=== PATIENT | male | born 1960 | race Caucasian/White ===

== ENCOUNTER → 2017-10-30 | Outpatient (CLI) | payer MEDICARE ==
[2017-10-30 12:10] LABS: ABSOLUTE BASOPHILS # (AUTO) 0.1 10^3/uL (0.0-0.2); ABSOLUTE EOSINOPHILS # (AUTO) 0.2 10^3/uL (0.0-0.6); ABSOLUTE LYMPHOCYTES (AUTO) 2.2 10^3/uL (0.5-4.7); ABSOLUTE MONOCYTES (AUTO) 0.5 10^3/uL (0.1-1.4); ABSOLUTE NEUT (AUTO) 5.6 10^3/uL (1.7-8.2); EOSINOPHILS % (AUTO) 2.5 % (0-6); HEMATOCRIT 42.4 % (37.9-51.0); HEMOGLOBIN 14.5 g/dL (13.5-17.0); LYMPHOCYTES % (AUTO) 25.4 % (13-45); MEAN CORPUSCULAR HEMOGLOBIN 30.1 pg (27.0-33.4); MEAN CORPUSCULAR HGB CONC 34.3 g/dL (32.0-36.0); MEAN CORPUSCULAR VOLUME 88 fl (80-97); MONOCYTES % (AUTO) 5.5 % (3-13); PLATELET COUNT 251 10^3/uL (150-450); RED BLOOD COUNT 4.82 10^6/uL (4.35-5.55); RED CELL DISTRIBUTION WIDTH 14.2 % (11.5-14.0); SEGMENTED NEUTROPHILS % (AUTO) 65.6 % (42-78); TOTAL CELLS COUNTED % (AUTO) 100 %; WHITE BLOOD COUNT 8.6 10^3/uL (4.0-10.5)
[2017-10-30 12:51] LABS: ERYTHROCYTE SEDIMENTATION RATE 51 mm/hr (0-20)
[2017-10-30 13:03] LABS: ALANINE AMINOTRANSFERASE 43 U/L (21-72); ALBUMIN 4.4 g/dL (3.5-5.0); ALKALINE PHOSPHATASE 110 U/L (38-126); ANION GAP 10 (5-19); ASPARTATE AMINO TRANSFERASE 28 U/L (17-59); BILIRUBIN,DIRECT 0.2 mg/dL (0.0-0.4); BILIRUBIN,TOTAL 0.3 mg/dL (0.2-1.3); BLOOD UREA NITROGEN 16 mg/dL (7-20); C-REACTIVE PROTEIN 19.7 mg/L (<10.0); CALCIUM 10.1 mg/dL (8.4-10.2); CARBON DIOXIDE 28 mmol/L (22-30); CHLORIDE 102 mmol/L (98-107); GLUCOSE 114 mg/dL (75-110); POTASSIUM 4.6 mmol/L (3.6-5.0); SODIUM 140.3 mmol/L (137-145); TOTAL PROTEIN 7.9 g/dL (6.3-8.2)
--- NOTE | 2017-10-30 13:50 | RADIOLOGY REPORT (SQ) ---
EXAM DESCRIPTION: FOOT BILATERAL 3 VIEWS COMPLETED DATE/TIME: 10/30/2017 11:35 am REASON FOR STUDY: NON-PRS CHRONIC ULCER OTH PRT RT/LT FOOT W FAT LAYER EXPOSED E11.621 TYPE 2 DIAB ETES MELLITUS WITH FOOT ULCER L97.512 NON-PRS CHRONIC ULCER OTH PRT RIGHT FOOT W FAT LAYER L97.522 NON-PRS CHRONIC ULCER OTH PRT LEFT FOOT W FAT LAYER COMPARISON: None. NUMBER OF VIEWS: Three views. TECHNIQUE: AP, lateral and oblique radiographic images acquired of the right and left foot. LIMITATIONS: Patient has compression stockings on which are faintly radiopaque FINDINGS: Overall bone density is normal. On the right side, there is diffuse soft tissue swelling throughout the 2nd and 3rd toes, without agg ressive bony demineralization or periostitis worrisome for osteomyelitis. On the left side, diffuse soft tissue swelling of the 1st 2nd and 3rd toes is present. Radiopaque oi ntment between the 1st and 2nd toes in a soft tissue ulcer. No aggressive bony demineralization or p eriosteal new bone worrisome for active osteomyelitis. No soft tissue gas. There is a pencil in cup deformity at the left 1st metatarsophalangeal joint which could be seen in p soriatic arthritis or erosive osteoarthritis. Gout could not entirely be excluded. On the left side, a soft tissue ulcer over the 5th toe with radiopaque ointment is seen. No aggressi ve bony demineralization or periosteal new bone worrisome for active osteomyelitis. No right or left acute foot fracture. IMPRESSION: With swelling over the toes bilaterally, without aggressive bony demineralization or per iosteal new bone to suggest active osteomyelitis Advanced arthritis at the left 1st metatarsophalangeal joint worrisome for psoriatic arthritis, erosi ve osteoarthritis, or gout TECHNICAL DOCUMENTATION: JOB ID: [id number] [employer]- All Rights Reserved Reading location - IP/workstation name: [email or web address]
== END ==
LOC: OD 10:43
PROVIDERS: ATTEND Preventive Medicine Undersea and Hyperbaric Medicine
DX: E11.621 Type 2 diabetes mellitus with foot ulcer (principal); L97.512 Non-pressure chronic ulcer of other part of right foot with fat layer exposed; L97.522 Non-pressure chronic ulcer of other part of left foot with fat layer exposed
CPT/HCPCS: 36415; 80053; 83036; 85025; 85652; 86140

== ENCOUNTER → 2017-11-10 | Outpatient (CLI) | payer MEDICARE ==
--- NOTE | 2017-11-10 16:25 | XCELERA REPORT ---
[address] [address] Lower Extremity Arterial Evaluation Name: DAPHNIE THURSTON Age: 57 yrs Gender: Male : 1960 Patient Status: Outpatient Patient Location: Study Date: 11/10/2017 09:01 AM Procedure: A color flow and duplex scan of the lower extremity arteries was performed bilaterally with velocity and waveform anaylsis. Reason For Study: [facility] Ordering Physician: DEE MAIER Performed By: Elissa Alfonso Measurements and Calculations Right Left GRINDER OPERATOR PSV 170.3 155.7 cm/sec Prox PFA PSV -85.6 74.1 cm/sec Prox SFA PSV 120.5 145.0 cm/sec Mid SFA PSV -95.0 -97.3 cm/sec Dist SFA PSV -115.9 -88.4 cm/sec Prox Pop A PSV 143.0 89.0 cm/sec Dist CAMRON PSV 97.3 61.2 cm/sec Dist LOADING INSPECTOR PSV 94.3 169.7 cm/sec Jose F Pedis PSV -91.3 78.3 cm/sec Right Side Arterial Evaluation Normal velocity and triphasic waveforms noted from the Common Femoral artery to the infrageniculate vessels. 0 % stenosis . Ankle Brachial index not done due to bandaging, foot ulcers. Left Side Arterial Evaluation Normal velocity and triphasic waveforms noted from the Common Femoral artery to the infrageniculate vessels. 0 % stenosis . Ankle Brachial index not done due to bandaging, foot ulcers. Interpretation Summary No hemodynamically significant lesions in the bilateral lower extremities, on duplex imaging, at rest. : DEE MAIER > [employer]
== END ==
LOC: SP 08:58
PROVIDERS: ATTEND Preventive Medicine Undersea and Hyperbaric Medicine
DX: L97.512 Non-pressure chronic ulcer of other part of right foot with fat layer exposed (principal)
CPT/HCPCS: 93925

== ENCOUNTER → 2018-01-27 | Outpatient (CLI) | payer MEDICARE ==
--- NOTE | 2018-01-27 13:36 | RADIOLOGY REPORT (SQ) ---
EXAM DESCRIPTION: FOOT RIGHT COMPLETE COMPLETED DATE/TIME: 01/27/2018 10:15 am REASON FOR STUDY: NON PRESSURE ULCER OF RT FOOT WITH FAT LAYER EXPOSED L97.512 NON-PRS CHRONIC ULCE R OTH PRT RIGHT FOOT W FAT LAYER COMPARISON: None. NUMBER OF VIEWS: Three views. TECHNIQUE: AP, lateral and oblique without weight bearing radiographic images acquired of the right foot. LIMITATIONS: None. FINDINGS: MINERALIZATION: Normal. BONES: No acute fracture or dislocation. No worrisome bone lesions. No plain radiographic changes of osteomyelitis. JOINTS: No erosions. No chris-articular osteopenia. No chondrocalcinosis. SOFT TISSUES: No swelling. No calcifications. OTHER: No other significant finding. IMPRESSION: No plain radiographic changes osteomyelitis. TECHNICAL DOCUMENTATION: JOB ID: [id number] [employer]- All Rights Reserved Reading location - IP/workstation name: [email or web address]
== END ==
LOC: OD 09:54
PROVIDERS: ATTEND Nurse Practitioner
DX: L97.512 Non-pressure chronic ulcer of other part of right foot with fat layer exposed (principal)

== ENCOUNTER → 2018-03-10 | Outpatient (CLI) | payer MEDICARE ==
[2018-03-10 11:10] LABS: ABSOLUTE BASOPHILS # (AUTO) 0.1 10^3/uL (0.0-0.2); ABSOLUTE EOSINOPHILS # (AUTO) 0.3 10^3/uL (0.0-0.6); ABSOLUTE LYMPHOCYTES (AUTO) 2.3 10^3/uL (0.5-4.7); ABSOLUTE MONOCYTES (AUTO) 0.9 10^3/uL (0.1-1.4); ABSOLUTE NEUT (AUTO) 7.8 10^3/uL (1.7-8.2); BASOPHILS % (AUTO) 1.2 % (0-2); EOSINOPHILS % (AUTO) 2.8 % (0-6); HEMATOCRIT 32.2 % (37.9-51.0); HEMOGLOBIN 10.8 g/dL (13.5-17.0); LYMPHOCYTES % (AUTO) 20.2 % (13-45); MEAN CORPUSCULAR HEMOGLOBIN 29.5 pg (27.0-33.4); MEAN CORPUSCULAR HGB CONC 33.4 g/dL (32.0-36.0); MEAN CORPUSCULAR VOLUME 88 fl (80-97); PLATELET COUNT 310 10^3/uL (150-450); RED BLOOD COUNT 3.64 10^6/uL (4.35-5.55); SEGMENTED NEUTROPHILS % (AUTO) 67.8 % (42-78); TOTAL CELLS COUNTED % (AUTO) 100 %; WHITE BLOOD COUNT 11.4 10^3/uL (4.0-10.5)
[2018-03-10 11:42] LABS: ALANINE AMINOTRANSFERASE 99 U/L (21-72); ALBUMIN 3.3 g/dL (3.5-5.0); ALKALINE PHOSPHATASE 150 U/L (38-126); ANION GAP 13 (5-19); ASPARTATE AMINO TRANSFERASE 85 U/L (17-59); BILIRUBIN,DIRECT 0.3 mg/dL (0.0-0.4); BILIRUBIN,TOTAL 0.4 mg/dL (0.2-1.3); BLOOD UREA NITROGEN 13 mg/dL (7-20); CARBON DIOXIDE 24 mmol/L (22-30); CHLORIDE 103 mmol/L (98-107); GLUCOSE 111 mg/dL (75-110); POTASSIUM 4.1 mmol/L (3.6-5.0); SODIUM 140.2 mmol/L (137-145); TOTAL PROTEIN 7.2 g/dL (6.3-8.2)
[2018-03-10 11:54] LABS: ERYTHROCYTE SEDIMENTATION RATE 107 mm/hr (0-20)
[2018-03-10 11:57] LABS: C-REACTIVE PROTEIN 179.9 mg/L (<10.0)
== END ==
LOC: WC 09:59
PROVIDERS: ATTEND Nurse Practitioner
DX: E11.621 Type 2 diabetes mellitus with foot ulcer (principal); L97.512 Non-pressure chronic ulcer of other part of right foot with fat layer exposed
CPT/HCPCS: 36415; 80053; 83036; 85025; 85652; 86140

== ENCOUNTER → 2018-03-31 | Outpatient (CLI) | payer MEDICARE ==
--- NOTE | 2018-03-31 10:31 | RADIOLOGY REPORT (SQ) ---
EXAM DESCRIPTION: FOOT BILATERAL 3 VIEWS COMPLETED DATE/TIME: 03/31/2018 9:59 am REASON FOR STUDY: NON PRESSURE ULCER MELINA FEET WITH FAT LAYER EXPOSED L97.512 NON-PRS CHRONIC ULCER OTH PRT RIGHT FOOT W FAT LAYER L97.522 NON-PRS CHRONIC ULCER OTH PRT LEFT FOOT W FAT LAYER COMPARISON: Right foot three views 01/27/2018 Bilateral feet three views 10/30/2017 NUMBER OF VIEWS: Three views. TECHNIQUE: AP, lateral and oblique radiographic images acquired of the right and left foot. LIMITATIONS: None. FINDINGS: RIGHT FOOT MINERALIZATION: Normal. BONES: No acute fracture or dislocation. No worrisome bone lesions. Although there has been some re modeling at the distal tuft, 2nd toe, the appearance today is similar compared to prior exams suggest ing against active osteomyelitis. JOINTS: No effusions. SOFT TISSUES: Diffuse forefoot and toe soft tissue swelling. No foreign body. OTHER: No other significant finding. LEFT FOOT MINERALIZATION: Normal. BONES: No acute fracture or dislocation. Chronic appearing pencil in cup deformity left 1st metatars ophalangeal joint, unchanged. JOINTS: No effusions. SOFT TISSUES: Diffuse forefoot and toe soft tissue swelling. No foreign body. OTHER: No other significant finding. IMPRESSION: Soft tissue swelling of both feet and toes. No new areas of demineralization or periost itis worrisome for active osteomyelitis TECHNICAL DOCUMENTATION: JOB ID: [id number] [employer]- All Rights Reserved Reading location - IP/workstation name: [email or web address]
== END ==
LOC: OD 09:38
PROVIDERS: ATTEND Nurse Practitioner
DX: L97.512 Non-pressure chronic ulcer of other part of right foot with fat layer exposed (principal); L97.522 Non-pressure chronic ulcer of other part of left foot with fat layer exposed

== ENCOUNTER → 2018-06-02 | Outpatient (CLI) | payer MEDICARE ==
[2018-06-02 10:32] LABS: ABSOLUTE BASOPHILS # (AUTO) 0.1 10^3/uL (0.0-0.2); ABSOLUTE EOSINOPHILS # (AUTO) 0.2 10^3/uL (0.0-0.6); ABSOLUTE LYMPHOCYTES (AUTO) 2.6 10^3/uL (0.5-4.7); ABSOLUTE MONOCYTES (AUTO) 0.5 10^3/uL (0.1-1.4); ABSOLUTE NEUT (AUTO) 4.6 10^3/uL (1.7-8.2); BASOPHILS % (AUTO) 0.8 % (0-2); EOSINOPHILS % (AUTO) 2.9 % (0-6); HEMATOCRIT 35.3 % (37.9-51.0); HEMOGLOBIN 11.7 g/dL (13.5-17.0); LYMPHOCYTES % (AUTO) 32.6 % (13-45); MEAN CORPUSCULAR HEMOGLOBIN 28.8 pg (27.0-33.4); MEAN CORPUSCULAR VOLUME 87 fl (80-97); MONOCYTES % (AUTO) 6.1 % (3-13); PLATELET COUNT 197 10^3/uL (150-450); RED BLOOD COUNT 4.05 10^6/uL (4.35-5.55); RED CELL DISTRIBUTION WIDTH 17.4 % (11.5-14.0); SEGMENTED NEUTROPHILS % (AUTO) 57.6 % (42-78); TOTAL CELLS COUNTED % (AUTO) 100 %; WHITE BLOOD COUNT 7.9 10^3/uL (4.0-10.5)
[2018-06-02 11:06] LABS: ALANINE AMINOTRANSFERASE 26 U/L (21-72); ALKALINE PHOSPHATASE 100 U/L (38-126); ANION GAP 10 (5-19); ASPARTATE AMINO TRANSFERASE 19 U/L (17-59); BILIRUBIN,DIRECT 0.2 mg/dL (0.0-0.4); BILIRUBIN,TOTAL 0.5 mg/dL (0.2-1.3); BLOOD UREA NITROGEN 21 mg/dL (7-20); C-REACTIVE PROTEIN 24.2 mg/L (<10.0); CALCIUM 9.8 mg/dL (8.4-10.2); CARBON DIOXIDE 31 mmol/L (22-30); CHLORIDE 102 mmol/L (98-107); GLUCOSE 164 mg/dL (75-110); POTASSIUM 4.8 mmol/L (3.6-5.0); SODIUM 142.6 mmol/L (137-145); TOTAL PROTEIN 8.2 g/dL (6.3-8.2)
[2018-06-02 11:26] LABS: ERYTHROCYTE SEDIMENTATION RATE 63 mm/hr (0-20)
== END ==
LOC: WC 09:43
PROVIDERS: ATTEND Nurse Practitioner
DX: E11.621 Type 2 diabetes mellitus with foot ulcer (principal); L97.522 Non-pressure chronic ulcer of other part of left foot with fat layer exposed
CPT/HCPCS: 36415; 80053; 83036; 85025; 85652; 86140

== ENCOUNTER → 2018-09-22 | Outpatient (CLI) | payer MEDICARE ==
[2018-09-22 10:56] LABS: ABSOLUTE BASOPHILS # (AUTO) 0.1 10^3/uL (0.0-0.2); ABSOLUTE EOSINOPHILS # (AUTO) 0.2 10^3/uL (0.0-0.6); ABSOLUTE LYMPHOCYTES (AUTO) 2.1 10^3/uL (0.5-4.7); ABSOLUTE MONOCYTES (AUTO) 0.4 10^3/uL (0.1-1.4); ABSOLUTE NEUT (AUTO) 5.2 10^3/uL (1.7-8.2); BASOPHILS % (AUTO) 1.1 % (0-2); EOSINOPHILS % (AUTO) 2.3 % (0-6); HEMATOCRIT 44.3 % (37.9-51.0); HEMOGLOBIN 15.1 g/dL (13.5-17.0); LYMPHOCYTES % (AUTO) 25.9 % (13-45); MEAN CORPUSCULAR HEMOGLOBIN 30.4 pg (27.0-33.4); MEAN CORPUSCULAR VOLUME 89 fl (80-97); PLATELET COUNT 217 10^3/uL (150-450); RED BLOOD COUNT 4.96 10^6/uL (4.35-5.55); SEGMENTED NEUTROPHILS % (AUTO) 65.7 % (42-78); TOTAL CELLS COUNTED % (AUTO) 100 %
[2018-09-22 11:14] LABS: ALANINE AMINOTRANSFERASE 52 U/L (21-72); ALBUMIN 4.8 g/dL (3.5-5.0); ALKALINE PHOSPHATASE 122 U/L (38-126); ANION GAP 12 (5-19); ASPARTATE AMINO TRANSFERASE 36 U/L (17-59); BILIRUBIN,DIRECT 0.2 mg/dL (0.0-0.4); BILIRUBIN,TOTAL 0.6 mg/dL (0.2-1.3); BLOOD UREA NITROGEN 26 mg/dL (7-20); C-REACTIVE PROTEIN 19.1 mg/L (<10.0); CALCIUM 10.4 mg/dL (8.4-10.2); CARBON DIOXIDE 31 mmol/L (22-30); CHLORIDE 99 mmol/L (98-107); GLUCOSE 189 mg/dL (75-110); POTASSIUM 4.8 mmol/L (3.6-5.0); SODIUM 141.9 mmol/L (137-145); TOTAL PROTEIN 8.8 g/dL (6.3-8.2)
[2018-09-22 11:52] LABS: ERYTHROCYTE SEDIMENTATION RATE 52 mm/hr (0-20)
== END ==
LOC: WC 10:11
PROVIDERS: ATTEND Nurse Practitioner Family
DX: L97.512 Non-pressure chronic ulcer of other part of right foot with fat layer exposed (principal)
CPT/HCPCS: 36415; 80053; 85025; 85652; 86140

== ENCOUNTER → 2018-09-29 | Outpatient (CLI) | payer MEDICARE ==
[2018-09-29 11:07] LABS: ALANINE AMINOTRANSFERASE 42 U/L (21-72); ALBUMIN 4.4 g/dL (3.5-5.0); ALKALINE PHOSPHATASE 105 U/L (38-126); ANION GAP 11 (5-19); ASPARTATE AMINO TRANSFERASE 28 U/L (17-59); BILIRUBIN,DIRECT 0.2 mg/dL (0.0-0.4); BILIRUBIN,TOTAL 0.2 mg/dL (0.2-1.3); BLOOD UREA NITROGEN 16 mg/dL (7-20); CALCIUM 9.4 mg/dL (8.4-10.2); CARBON DIOXIDE 26 mmol/L (22-30); CHLORIDE 108 mmol/L (98-107); GLUCOSE 111 mg/dL (75-110); POTASSIUM 4.5 mmol/L (3.6-5.0); SODIUM 145.1 mmol/L (137-145); TOTAL PROTEIN 8.2 g/dL (6.3-8.2)
--- NOTE | 2018-09-29 13:28 | RADIOLOGY REPORT (SQ) ---
EXAM DESCRIPTION: FOOT BILATERAL 3 VIEWS COMPLETED DATE/TIME: 09/29/2018 10:39 am REASON FOR STUDY: NON-PRS CHRONIC ULCER OTH PRT RIGHT LEFT FOOT W FAT LAYER EXPOSED L97.512 NON-PRS CHRONIC ULCER OTH PRT RIGHT FOOT W FAT LAYER L97.522 NON-PRS CHRONIC ULCER OTH PRT LEFT FOOT W FAT LAYER COMPARISON: None. NUMBER OF VIEWS: Three views. TECHNIQUE: AP, lateral and oblique radiographic images acquired of the right and left foot. LIMITATIONS: None. FINDINGS: MINERALIZATION: Normal. BONES: There is bone destruction involving the base of the left 1st proximal phalanx. JOINTS: Extensive joint changes are present in the 1st metatarsal-phalangeal joint. SOFT TISSUES: No soft tissue swelling. No foreign body. OTHER: No other significant finding. IMPRESSION: Neuropathic joint changes involving the left 1st metatarsal-phalangeal joint. No eviden ce of osteomyelitis associated with the ulcers. TECHNICAL DOCUMENTATION: JOB ID: [id number] [employer]- All Rights Reserved Reading location - IP/workstation name: [email or web address]
== END ==
LOC: WC 09:38
PROVIDERS: ATTEND Nurse Practitioner Family
DX: L97.512 Non-pressure chronic ulcer of other part of right foot with fat layer exposed (principal); L97.522 Non-pressure chronic ulcer of other part of left foot with fat layer exposed
CPT/HCPCS: 36415; 80053

== ENCOUNTER → 2018-10-27 | Outpatient (CLI) | payer MEDICARE ==
--- NOTE | 2018-10-27 09:56 | RADIOLOGY REPORT (SQ) ---
EXAM DESCRIPTION: FOOT LEFT COMPLETE COMPLETED DATE/TIME: 10/27/2018 9:46 am REASON FOR STUDY: NON-PRS CHRONIC ULCER OTH PRT LEFT FOOT W FAT LAYER EXPOSED L97.522 NON-PRS CHRON IC ULCER OTH PRT LEFT FOOT W FAT LAYER L97.512 NON-PRS CHRONIC ULCER OTH PRT RIGHT FOOT W FAT LAYER COMPARISON: None. NUMBER OF VIEWS: Three views. TECHNIQUE: AP, lateral and oblique radiographic images acquired of the left foot. LIMITATIONS: None. FINDINGS: MINERALIZATION: Normal. BONES: There chronic degenerative changes involving the 1st metatarsal phalangeal joint. Changes may be related to prior infectious process. There is no acute evidence of osteomyelitis. JOINTS: No effusions. SOFT TISSUES: No soft tissue swelling. No foreign body. OTHER: No other significant finding. IMPRESSION: Chronic changes in the 1st metatarsal phalangeal joint as described. No conventional ra diographic evidence of acute osteomyelitis. TECHNICAL DOCUMENTATION: JOB ID: [id number] [employer]- All Rights Reserved Reading location - IP/workstation name: [email or web address]
--- NOTE | 2018-10-27 09:57 | RADIOLOGY REPORT (SQ) ---
EXAM DESCRIPTION: FOOT RIGHT COMPLETE COMPLETED DATE/TIME: 10/27/2018 9:46 am REASON FOR STUDY: NON-PRS CHRONIC ULCER OTH PRT RIGHT FOOT W FAT LAYER EXPOSED L97.522 NON-PRS MANAGER CABLE DANN ULCER OTH PRT LEFT FOOT W FAT LAYER L97.512 NON-PRS CHRONIC ULCER OTH PRT RIGHT FOOT W FAT LAYE R COMPARISON: None. NUMBER OF VIEWS: Three views. TECHNIQUE: AP, lateral and oblique radiographic images acquired of the right foot. LIMITATIONS: None. FINDINGS: MINERALIZATION: Normal. BONES: No acute fracture or dislocation. No worrisome bone lesions. JOINTS: No effusions. SOFT TISSUES: No soft tissue swelling. No foreign body. OTHER: No other significant finding. IMPRESSION: No acute findings. No conventional radiographic evidence of osteomyelitis. TECHNICAL DOCUMENTATION: JOB ID: [id number] [employer]- All Rights Reserved Reading location - IP/workstation name: [email or web address]
[2018-10-27 10:10] LABS: ABSOLUTE BASOPHILS # (AUTO) 0.1 10^3/uL (0.0-0.2); ABSOLUTE EOSINOPHILS # (AUTO) 0.2 10^3/uL (0.0-0.6); ABSOLUTE LYMPHOCYTES (AUTO) 1.7 10^3/uL (0.5-4.7); ABSOLUTE MONOCYTES (AUTO) 0.4 10^3/uL (0.1-1.4); ABSOLUTE NEUT (AUTO) 4.6 10^3/uL (1.7-8.2); BASOPHILS % (AUTO) 1.2 % (0-2); EOSINOPHILS % (AUTO) 2.8 % (0-6); HEMATOCRIT 43.2 % (37.9-51.0); HEMOGLOBIN 14.8 g/dL (13.5-17.0); LYMPHOCYTES % (AUTO) 23.9 % (13-45); MEAN CORPUSCULAR HEMOGLOBIN 30.7 pg (27.0-33.4); MEAN CORPUSCULAR HGB CONC 34.3 g/dL (32.0-36.0); MEAN CORPUSCULAR VOLUME 90 fl (80-97); MONOCYTES % (AUTO) 6.2 % (3-13); PLATELET COUNT 206 10^3/uL (150-450); RED BLOOD COUNT 4.83 10^6/uL (4.35-5.55); RED CELL DISTRIBUTION WIDTH 15.6 % (11.5-14.0); SEGMENTED NEUTROPHILS % (AUTO) 65.9 % (42-78); TOTAL CELLS COUNTED % (AUTO) 100 %
[2018-10-27 10:39] LABS: ALANINE AMINOTRANSFERASE 37 U/L (21-72); ALBUMIN 4.6 g/dL (3.5-5.0); ALKALINE PHOSPHATASE 115 U/L (38-126); ANION GAP 15 (5-19); ASPARTATE AMINO TRANSFERASE 31 U/L (17-59); BILIRUBIN,DIRECT 0.4 mg/dL (0.0-0.4); BILIRUBIN,TOTAL 0.6 mg/dL (0.2-1.3); BLOOD UREA NITROGEN 23 mg/dL (7-20); CALCIUM 10.3 mg/dL (8.4-10.2); CARBON DIOXIDE 26 mmol/L (22-30); CHLORIDE 99 mmol/L (98-107); GLUCOSE 236 mg/dL (75-110); POTASSIUM 4.3 mmol/L (3.6-5.0); SODIUM 139.8 mmol/L (137-145); TOTAL PROTEIN 8.7 g/dL (6.3-8.2)
[2018-10-27 10:49] LABS: ERYTHROCYTE SEDIMENTATION RATE 41 mm/hr (0-20)
[2018-10-27 12:02] LABS: C-REACTIVE PROTEIN 10.6 mg/L (<10.0)
== END ==
LOC: WC 09:16
PROVIDERS: ATTEND Nurse Practitioner Family
DX: L97.522 Non-pressure chronic ulcer of other part of left foot with fat layer exposed (principal); L97.512 Non-pressure chronic ulcer of other part of right foot with fat layer exposed
CPT/HCPCS: 36415; 80053; 85025; 85652; 86140

== ENCOUNTER → 2019-01-14 | Outpatient (CLI) | payer MEDICARE ==
[2019-01-14 11:26] LABS: ABSOLUTE BASOPHILS # (AUTO) 0.1 10^3/uL (0.0-0.2); ABSOLUTE EOSINOPHILS # (AUTO) 0.2 10^3/uL (0.0-0.6); ABSOLUTE LYMPHOCYTES (AUTO) 2.3 10^3/uL (0.5-4.7); ABSOLUTE MONOCYTES (AUTO) 0.5 10^3/uL (0.1-1.4); ABSOLUTE NEUT (AUTO) 5.9 10^3/uL (1.7-8.2); BASOPHILS % (AUTO) 0.9 % (0-2); EOSINOPHILS % (AUTO) 2.3 % (0-6); HEMATOCRIT 42.9 % (37.9-51.0); HEMOGLOBIN 14.4 g/dL (13.5-17.0); LYMPHOCYTES % (AUTO) 25.3 % (13-45); MEAN CORPUSCULAR HEMOGLOBIN 30.4 pg (27.0-33.4); MEAN CORPUSCULAR HGB CONC 33.5 g/dL (32.0-36.0); MEAN CORPUSCULAR VOLUME 91 fl (80-97); PLATELET COUNT 256 10^3/uL (150-450); RED BLOOD COUNT 4.73 10^6/uL (4.35-5.55); RED CELL DISTRIBUTION WIDTH 14.5 % (11.5-14.0); SEGMENTED NEUTROPHILS % (AUTO) 65.5 % (42-78); TOTAL CELLS COUNTED % (AUTO) 100 %
--- NOTE | 2019-01-14 11:32 | RADIOLOGY REPORT (SQ) ---
EXAM DESCRIPTION: FOOT BILATERAL 3 VIEWS COMPLETED DATE/TIME: 01/14/2019 11:14 am REASON FOR STUDY: NON PRESSURE ULCER OF MELINA FEET L97.512 NON-PRS CHRONIC ULCER OTH PRT RIGHT FOOT W FAT LAYER COMPARISON: None. NUMBER OF VIEWS: Three views. TECHNIQUE: AP, lateral and oblique radiographic images acquired of the right and left foot. LIMITATIONS: Mild artifact from radiopaque dressing over the right and left feet from Unna boot FINDINGS: RIGHT FOOT MINERALIZATION: Normal. BONES: No aggressive demineralization worrisome for osteomyelitis 2nd toe JOINTS: Normal alignment SOFT TISSUES: Diffuse forefoot soft tissue swelling. There is a soft tissue ulcer along the dorsal a spect of the right 2nd toe without underlying soft tissue gas aggressive or bony demineralization to suggest osteomyelitis. OTHER: No other significant finding. LEFT FOOT: MINERALIZATION: Normal. BONES: No aggressive demineralization worrisome for osteomyelitis 2nd toe JOINTS: Classic pencil in cup deformity left 1st metatarsophalangeal joint, likely related to psoriat ic arthritis or other seronegative spondyloarthropathy. SOFT TISSUES: Diffuse forefoot soft tissue swelling. There is a soft tissue ulcer along the dorsal a spect of the left 2nd toe without underlying in soft tissue gas or aggressive bony demineralization t o suggest osteomyelitis OTHER: No other significant finding. IMPRESSION: Bilateral 2nd toe soft tissue ulcers and swelling without bony changes to suggest osteom yelitis TECHNICAL DOCUMENTATION: JOB ID: [id number] [employer]- All Rights Reserved Reading location - IP/workstation name: [email or web address]
[2019-01-14 11:49] LABS: ALANINE AMINOTRANSFERASE 30 U/L (21-72); ALBUMIN 4.5 g/dL (3.5-5.0); ALKALINE PHOSPHATASE 106 U/L (38-126); ANION GAP 10 (5-19); ASPARTATE AMINO TRANSFERASE 21 U/L (17-59); BILIRUBIN,DIRECT 0.3 mg/dL (0.0-0.4); BILIRUBIN,TOTAL 0.4 mg/dL (0.2-1.3); BLOOD UREA NITROGEN 27 mg/dL (7-20); CALCIUM 10.1 mg/dL (8.4-10.2); CARBON DIOXIDE 29 mmol/L (22-30); CHLORIDE 102 mmol/L (98-107); GLUCOSE 100 mg/dL (75-110); POTASSIUM 4.7 mmol/L (3.6-5.0); SODIUM 140.8 mmol/L (137-145); TOTAL PROTEIN 8.5 g/dL (6.3-8.2)
[2019-01-14 12:01] LABS: ERYTHROCYTE SEDIMENTATION RATE 47 mm/hr (0-20)
== END ==
LOC: WC 10:07
PROVIDERS: ATTEND Preventive Medicine Undersea and Hyperbaric Medicine
DX: L97.512 Non-pressure chronic ulcer of other part of right foot with fat layer exposed (principal); L97.522 Non-pressure chronic ulcer of other part of left foot with fat layer exposed
CPT/HCPCS: 36415; 80053; 85025; 85652; 86140

== ENCOUNTER → 2019-03-12 | Outpatient (CLI) | payer MEDICARE ==
[2019-03-12 10:50] LABS: ABSOLUTE BASOPHILS # (AUTO) 0.1 10^3/uL (0.0-0.2); ABSOLUTE EOSINOPHILS # (AUTO) 0.2 10^3/uL (0.0-0.6); ABSOLUTE LYMPHOCYTES (AUTO) 1.7 10^3/uL (0.5-4.7); ABSOLUTE MONOCYTES (AUTO) 0.5 10^3/uL (0.1-1.4); ABSOLUTE NEUT (AUTO) 5.3 10^3/uL (1.7-8.2); BASOPHILS % (AUTO) 0.9 % (0-2); EOSINOPHILS % (AUTO) 2.1 % (0-6); HEMATOCRIT 40.4 % (37.9-51.0); HEMOGLOBIN 13.6 g/dL (13.5-17.0); LYMPHOCYTES % (AUTO) 22.4 % (13-45); MEAN CORPUSCULAR HEMOGLOBIN 30.4 pg (27.0-33.4); MEAN CORPUSCULAR HGB CONC 33.7 g/dL (32.0-36.0); MEAN CORPUSCULAR VOLUME 90 fl (80-97); MONOCYTES % (AUTO) 6.1 % (3-13); PLATELET COUNT 233 10^3/uL (150-450); RED BLOOD COUNT 4.49 10^6/uL (4.35-5.55); RED CELL DISTRIBUTION WIDTH 15.4 % (11.5-14.0); SEGMENTED NEUTROPHILS % (AUTO) 68.5 % (42-78); TOTAL CELLS COUNTED % (AUTO) 100 %; WHITE BLOOD COUNT 7.8 10^3/uL (4.0-10.5)
[2019-03-12 11:22] LABS: ALBUMIN 4.3 g/dL (3.5-5.0); ALKALINE PHOSPHATASE 107 U/L (38-126); ANION GAP 8 (5-19); ASPARTATE AMINO TRANSFERASE 25 U/L (17-59); BILIRUBIN,DIRECT 0.2 mg/dL (0.0-0.4); BILIRUBIN,TOTAL 0.4 mg/dL (0.2-1.3); BLOOD UREA NITROGEN 21 mg/dL (7-20); C-REACTIVE PROTEIN 19.8 mg/L (<10.0); CALCIUM 9.7 mg/dL (8.4-10.2); CARBON DIOXIDE 29 mmol/L (22-30); CHLORIDE 99 mmol/L (98-107); GLUCOSE 216 mg/dL (75-110); TOTAL PROTEIN 7.9 g/dL (6.3-8.2)
[2019-03-12 11:28] LABS: ERYTHROCYTE SEDIMENTATION RATE 55 mm/hr (0-20)
--- NOTE | 2019-03-12 11:38 | RADIOLOGY REPORT (SQ) ---
EXAM DESCRIPTION: TIBIA FIBULA LEFT COMPLETED DATE/TIME: 03/12/2019 10:54 am REASON FOR STUDY: ULCER ON BOTH FEET L97.512 NON-PRS CHRONIC ULCER OTH PRT RIGHT FOOT W FAT LAYER L 97.522 NON-PRS CHRONIC ULCER OTH PRT LEFT FOOT W FAT LAYER E11.621 TYPE 2 DIABETES MELLITUS WITH F OOT ULCER COMPARISON: None. NUMBER OF VIEWS: Two views. TECHNIQUE: Two radiographic images acquired of the left tibia and fibula to include the knee and ank le in at least one projection. LIMITATIONS: None. FINDINGS: MINERALIZATION: Normal. BONES: No acute fracture or dislocation. No worrisome bone lesions. Mild degenerative changes at th e knee with osteophytosis. SOFT TISSUES: No obvious swelling or foreign body. OTHER: No other significant finding. IMPRESSION: NEGATIVE STUDY OF THE LEFT TIBIA AND FIBULA. NO RADIOGRAPHIC EVIDENCE OF ACUTE INJURY. TECHNICAL DOCUMENTATION: JOB ID: [id number] [employer]- All Rights Reserved Reading location - IP/workstation name: [email or web address]
--- NOTE | 2019-03-12 11:42 | RADIOLOGY REPORT (SQ) ---
EXAM DESCRIPTION: TIBIA FIBULA RIGHT COMPLETED DATE/TIME: 03/12/2019 10:54 am REASON FOR STUDY: ULCERS ON BOTH FEET L97.512 NON-PRS CHRONIC ULCER OTH PRT RIGHT FOOT W FAT LAYER L97.522 NON-PRS CHRONIC ULCER OTH PRT LEFT FOOT W FAT LAYER E11.621 TYPE 2 DIABETES MELLITUS WITH FOOT ULCER COMPARISON: None. NUMBER OF VIEWS: Two views. TECHNIQUE: Two radiographic images acquired of the right tibia and fibula to include the knee and an kle in at least one projection. LIMITATIONS: None. FINDINGS: MINERALIZATION: Normal. BONES: No acute fracture or dislocation. No worrisome bone lesions. Degenerative changes with osteo phytosis at the knee. Mild midfoot degenerative change. SOFT TISSUES: No obvious swelling or foreign body. OTHER: No other significant finding. IMPRESSION: NEGATIVE STUDY OF THE RIGHT TIBIA AND FIBULA. NO RADIOGRAPHIC EVIDENCE OF ACUTE INJURY. TECHNICAL DOCUMENTATION: JOB ID: [id number] [employer]- All Rights Reserved Reading location - IP/workstation name: [email or web address]
--- NOTE | 2019-03-12 11:46 | RADIOLOGY REPORT (SQ) ---
EXAM DESCRIPTION: FOOT LEFT COMPLETE COMPLETED DATE/TIME: 03/12/2019 10:54 am REASON FOR STUDY: ULCERS ON BOTH FEET L97.512 NON-PRS CHRONIC ULCER OTH PRT RIGHT FOOT W FAT LAYER L97.522 NON-PRS CHRONIC ULCER OTH PRT LEFT FOOT W FAT LAYER E11.621 TYPE 2 DIABETES MELLITUS WITH FOOT ULCER COMPARISON: 10/27/2018 NUMBER OF VIEWS: Three views. TECHNIQUE: AP, lateral and oblique radiographic images acquired of the left foot. LIMITATIONS: None. FINDINGS: MINERALIZATION: Normal. BONES: Again seen is chronic dysmorphic degenerative changes involving the 1st MTP joint. Findings p ossibly related to remote infection or trauma. No evidence of new bony abnormality. No new osseous erosions. Pes planus. Os peroneum. JOINTS: No dislocation. Changes at the 1st MTP joint as above. SOFT TISSUES: Soft tissue swelling about the foot. No radiopaque foreign body. OTHER: No other significant finding. IMPRESSION: 1. Unchanged dysmorphic appearance at the 1st MTP joint possibly related to prior infec tion or trauma. No new definitive findings to suggest osteomyelitis. TECHNICAL DOCUMENTATION: JOB ID: [id number] [employer]- All Rights Reserved Reading location - IP/workstation name: [email or web address]
--- NOTE | 2019-03-12 11:49 | RADIOLOGY REPORT (SQ) ---
EXAM DESCRIPTION: FOOT RIGHT COMPLETE COMPLETED DATE/TIME: 03/12/2019 10:54 am REASON FOR STUDY: ULCERS ON BOTH FEET L97.512 NON-PRS CHRONIC ULCER OTH PRT RIGHT FOOT W FAT LAYER L97.522 NON-PRS CHRONIC ULCER OTH PRT LEFT FOOT W FAT LAYER E11.621 TYPE 2 DIABETES MELLITUS WITH FOOT ULCER COMPARISON: NUMBER OF VIEWS: Three views. TECHNIQUE: AP, lateral and oblique radiographic images acquired of the right foot. LIMITATIONS: None. FINDINGS: MINERALIZATION: Normal. BONES: No fracture dislocation. No new osseous erosions. Mild degenerative changes at scattered int erphalangeal joints. JOINTS: No dislocation. No large effusion. No erosive disease. SOFT TISSUES: Soft tissue swelling about the forefoot. Curvilinear radiodensities overlying the dors al 1st and 2nd digits possibly heterotopic soft tissue ossification or bandage material. OTHER: No other significant finding. IMPRESSION: 1. Soft tissue swelling about the forefoot without definitive evidence of osteomyelitis or other acute bony abnormality. TECHNICAL DOCUMENTATION: JOB ID: [id number] [employer]- All Rights Reserved Reading location - IP/workstation name: [email or web address]
== END ==
LOC: WC 10:11
PROVIDERS: ATTEND Preventive Medicine Undersea and Hyperbaric Medicine
DX: L97.512 Non-pressure chronic ulcer of other part of right foot with fat layer exposed (principal); L97.522 Non-pressure chronic ulcer of other part of left foot with fat layer exposed; E11.621 Type 2 diabetes mellitus with foot ulcer
CPT/HCPCS: 36415; 80053; 83036; 85025; 85652; 86140

== ENCOUNTER → 2019-04-22 | Outpatient (CLI) | payer MEDICARE ==
[2019-04-22 10:39] LABS: ABSOLUTE BASOPHILS # (AUTO) 0.1 10^3/uL (0.0-0.2); ABSOLUTE EOSINOPHILS # (AUTO) 0.2 10^3/uL (0.0-0.6); ABSOLUTE LYMPHOCYTES (AUTO) 1.9 10^3/uL (0.5-4.7); ABSOLUTE MONOCYTES (AUTO) 0.5 10^3/uL (0.1-1.4); ABSOLUTE NEUT (AUTO) 6.1 10^3/uL (1.7-8.2); BASOPHILS % (AUTO) 0.8 % (0-2); EOSINOPHILS % (AUTO) 2.4 % (0-6); HEMATOCRIT 40.5 % (37.9-51.0); HEMOGLOBIN 13.8 g/dL (13.5-17.0); LYMPHOCYTES % (AUTO) 21.7 % (13-45); MEAN CORPUSCULAR HEMOGLOBIN 30.9 pg (27.0-33.4); MEAN CORPUSCULAR HGB CONC 34.1 g/dL (32.0-36.0); MEAN CORPUSCULAR VOLUME 91 fl (80-97); MONOCYTES % (AUTO) 5.4 % (3-13); PLATELET COUNT 298 10^3/uL (150-450); RED BLOOD COUNT 4.47 10^6/uL (4.35-5.55); RED CELL DISTRIBUTION WIDTH 15.3 % (11.5-14.0); SEGMENTED NEUTROPHILS % (AUTO) 69.7 % (42-78); TOTAL CELLS COUNTED % (AUTO) 100 %; WHITE BLOOD COUNT 8.7 10^3/uL (4.0-10.5)
[2019-04-22 11:15] LABS: ALBUMIN 4.6 g/dL (3.5-5.0); ALKALINE PHOSPHATASE 110 U/L (38-126); ANION GAP 13 (5-19); ASPARTATE AMINO TRANSFERASE 31 U/L (17-59); BILIRUBIN,DIRECT 0.2 mg/dL (0.0-0.4); BILIRUBIN,TOTAL 0.5 mg/dL (0.2-1.3); BLOOD UREA NITROGEN 19 mg/dL (7-20); C-REACTIVE PROTEIN 19.1 mg/L (<10.0); CALCIUM 9.7 mg/dL (8.4-10.2); CARBON DIOXIDE 27 mmol/L (22-30); CHLORIDE 100 mmol/L (98-107); ERYTHROCYTE SEDIMENTATION RATE 78 mm/hr (0-20); GLUCOSE 140 mg/dL (75-110); POTASSIUM 4.2 mmol/L (3.6-5.0); TOTAL PROTEIN 8.4 g/dL (6.3-8.2)
--- NOTE | 2019-04-22 12:02 | RADIOLOGY REPORT (SQ) ---
EXAM DESCRIPTION: FOOT RIGHT COMPLETE COMPLETED DATE/TIME: 04/22/2019 10:53 am REASON FOR STUDY: NON-PRS CHRONIC ULCER OTH PRT RIGHT FOOT W FAT LAYER EXPOSED L97.222 NON-PRESSURE CHRONIC ULCER OF LEFT CALF W FAT LAYER E11.621 TYPE 2 DIABETES MELLITUS WITH FOOT ULCER L97.512 N ON-PRS CHRONIC ULCER OTH PRT RIGHT FOOT W FAT LAYER COMPARISON: None. NUMBER OF VIEWS: Three views. TECHNIQUE: AP, lateral and oblique radiographic images acquired of the right foot. LIMITATIONS: None. FINDINGS: MINERALIZATION: Normal. BONES: No fracture or dislocation. No evidence of osteomyelitis. JOINTS: No effusions. SOFT TISSUES: No soft tissue swelling. No foreign body. OTHER: No other significant finding. IMPRESSION: There is no evidence of osteomyelitis. TECHNICAL DOCUMENTATION: JOB ID: [id number] [employer]- All Rights Reserved Reading location - IP/workstation name: [email or web address]
--- NOTE | 2019-04-22 12:04 | RADIOLOGY REPORT (SQ) ---
EXAM DESCRIPTION: FOOT LEFT COMPLETE COMPLETED DATE/TIME: 04/22/2019 10:53 am REASON FOR STUDY: NON-PRS CHRONIC ULCER OTH PRT LT FOOT W FAT LAYER EXPOSED L97.222 NON-PRESSURE CH RONIC ULCER OF LEFT CALF W FAT LAYER E11.621 TYPE 2 DIABETES MELLITUS WITH FOOT ULCER L97.512 NON- PRS CHRONIC ULCER OTH PRT RIGHT FOOT W FAT LAYER COMPARISON: 03/12/2019 NUMBER OF VIEWS: Three views. TECHNIQUE: AP, lateral and oblique radiographic images acquired of the left foot. LIMITATIONS: None. FINDINGS: MINERALIZATION: Normal. BONES: There are chronic changes at the 1st metatarsal-phalangeal joint. There is no evidence of acu te osteomyelitis. No interval change. JOINTS: No effusions. SOFT TISSUES: No soft tissue swelling. No foreign body. OTHER: No other significant finding. IMPRESSION: Chronic changes of the 1st metatarsal-phalangeal joint. No evidence of acute osteomyeli tis. TECHNICAL DOCUMENTATION: JOB ID: [id number] [employer]- All Rights Reserved Reading location - IP/workstation name: [email or web address]
== END ==
LOC: WC 09:57
PROVIDERS: ATTEND Preventive Medicine Undersea and Hyperbaric Medicine
DX: E11.621 Type 2 diabetes mellitus with foot ulcer (principal); L97.222 Non-pressure chronic ulcer of left calf with fat layer exposed; L97.512 Non-pressure chronic ulcer of other part of right foot with fat layer exposed
CPT/HCPCS: 36415; 80053; 83036; 85025; 85652; 86140

== ENCOUNTER → 2019-05-27 | Outpatient (CLI) | payer MEDICARE ==
[2019-05-27 11:02] LABS: ABSOLUTE BASOPHILS # (AUTO) 0.1 10^3/uL (0.0-0.2); ABSOLUTE EOSINOPHILS # (AUTO) 0.2 10^3/uL (0.0-0.6); ABSOLUTE LYMPHOCYTES (AUTO) 1.6 10^3/uL (0.5-4.7); ABSOLUTE MONOCYTES (AUTO) 0.4 10^3/uL (0.1-1.4); ABSOLUTE NEUT (AUTO) 5.5 10^3/uL (1.7-8.2); EOSINOPHILS % (AUTO) 2.7 % (0-6); HEMATOCRIT 38.3 % (37.9-51.0); HEMOGLOBIN 12.8 g/dL (13.5-17.0); LYMPHOCYTES % (AUTO) 20.6 % (13-45); MEAN CORPUSCULAR HEMOGLOBIN 30.3 pg (27.0-33.4); MEAN CORPUSCULAR HGB CONC 33.4 g/dL (32.0-36.0); MEAN CORPUSCULAR VOLUME 91 fl (80-97); MONOCYTES % (AUTO) 5.6 % (3-13); PLATELET COUNT 225 10^3/uL (150-450); RED BLOOD COUNT 4.22 10^6/uL (4.35-5.55); RED CELL DISTRIBUTION WIDTH 15.5 % (11.5-14.0); SEGMENTED NEUTROPHILS % (AUTO) 70.1 % (42-78); TOTAL CELLS COUNTED % (AUTO) 100 %; WHITE BLOOD COUNT 7.8 10^3/uL (4.0-10.5)
[2019-05-27 11:41] LABS: ALBUMIN 4.1 g/dL (3.5-5.0); ALKALINE PHOSPHATASE 118 U/L (38-126); ANION GAP 10 (5-19); ASPARTATE AMINO TRANSFERASE 31 U/L (17-59); BILIRUBIN,DIRECT 0.2 mg/dL (0.0-0.4); BILIRUBIN,TOTAL 0.5 mg/dL (0.2-1.3); BLOOD UREA NITROGEN 25 mg/dL (7-20); C-REACTIVE PROTEIN 28.7 mg/L (<10.0); CALCIUM 9.2 mg/dL (8.4-10.2); CARBON DIOXIDE 28 mmol/L (22-30); CHLORIDE 102 mmol/L (98-107); GLUCOSE 226 mg/dL (75-110); POTASSIUM 4.6 mmol/L (3.6-5.0); TOTAL PROTEIN 8.3 g/dL (6.3-8.2)
[2019-05-27 11:45] LABS: ERYTHROCYTE SEDIMENTATION RATE 60 mm/hr (0-20)
--- NOTE | 2019-05-27 12:41 | RADIOLOGY REPORT (SQ) ---
EXAM DESCRIPTION: TIB FIB BILAT 2 VIEWS COMPLETED DATE/TIME: 05/27/2019 10:53 am REASON FOR STUDY: TYPE 2 DIABETES MELLITUS WITH FOOT ULCER L97.512 NON-PRS CHRONIC ULCER OTH PRT RI GHT FOOT W FAT LAYER L97.522 NON-PRS CHRONIC ULCER OTH PRT LEFT FOOT W FAT LAYER E11.621 TYPE 2 DI ABETES MELLITUS WITH FOOT ULCER COMPARISON: None. NUMBER OF VIEWS: Two views. TECHNIQUE: Two radiographic images acquired of the right and left tibia and fibula to include the kn ee and ankle in at least one projection. LIMITATIONS: None. FINDINGS: MINERALIZATION: Normal. BONES: Degenerative joint disease in the medial aspect of the right knee in the medial aspect of the left knee. No osseous lesions. No acute findings. SOFT TISSUES: No obvious swelling or foreign body. OTHER: No other significant finding. IMPRESSION: Degenerative joint disease in the medial compartment of each knee. No acute finding. TECHNICAL DOCUMENTATION: JOB ID: [id number] [employer]- All Rights Reserved Reading location - IP/workstation name: [email or web address]
--- NOTE | 2019-05-27 12:46 | RADIOLOGY REPORT (SQ) ---
EXAM DESCRIPTION: FOOT BILATERAL 3 VIEWS COMPLETED DATE/TIME: 05/27/2019 10:52 am REASON FOR STUDY: TYPE 2 DIABETES MELLITUS WITH FOOT ULCER L97.512 NON-PRS CHRONIC ULCER OTH PRT RI GHT FOOT W FAT LAYER L97.522 NON-PRS CHRONIC ULCER OTH PRT LEFT FOOT W FAT LAYER E11.621 TYPE 2 DI ABETES MELLITUS WITH FOOT ULCER COMPARISON: 01/14/2019. NUMBER OF VIEWS: Three views. TECHNIQUE: AP, lateral and oblique radiographic images acquired of the right and left feet. LIMITATIONS: None. FINDINGS: RIGHT FOOT: MINERALIZATION: Osteopenia. BONES: No fracture or dislocation. No erosions or periarticular osteopenia. JOINTS: The tarsometatarsal alignment is preserved. SOFT TISSUES: Diffuse soft tissue swelling and soft tissue defect along the plantar aspect of the for efoot. There is no subcutaneous emphysema or radiopaque foreign body. OTHER: No other finding. LEFT FOOT: MINERALIZATION: Normal. BONES: Unchanged pencil-in- cup deformity of the 1st MTP joint. There is no fracture or dislocation. JOINTS: As above. SOFT TISSUES: Diffuse soft tissue swelling. There is no subcutaneous emphysema or radiopaque foreign body. OTHER: No other finding. IMPRESSION: 1. Diffuse bilateral soft tissue swelling with a ulceration defect along the plantar as pect of the right forefoot. There is no associated erosion, subcutaneous emphysema or other radiogra phic findings to indicate the presence of osteomyelitis. 2. Unchanged pencil-in- cup deformity of the 1st left MTP joint. TECHNICAL DOCUMENTATION: JOB ID: [id number] [employer]- All Rights Reserved Reading location - IP/workstation name: [email or web address]
== END ==
LOC: WC 09:56
PROVIDERS: ATTEND Preventive Medicine Undersea and Hyperbaric Medicine
DX: E11.621 Type 2 diabetes mellitus with foot ulcer (principal); L97.512 Non-pressure chronic ulcer of other part of right foot with fat layer exposed; L97.522 Non-pressure chronic ulcer of other part of left foot with fat layer exposed
CPT/HCPCS: 36415; 80053; 83036; 85025; 85652; 86140

== ENCOUNTER → 2019-06-23 | Outpatient (CLI) | payer MEDICARE ==
[2019-06-23 10:43] LABS: ABSOLUTE BASOPHILS # (AUTO) 0.1 10^3/uL (0.0-0.2); ABSOLUTE EOSINOPHILS # (AUTO) 0.2 10^3/uL (0.0-0.6); ABSOLUTE MONOCYTES (AUTO) 0.6 10^3/uL (0.1-1.4); ABSOLUTE NEUT (AUTO) 6.1 10^3/uL (1.7-8.2); BASOPHILS % (AUTO) 1.4 % (0-2); EOSINOPHILS % (AUTO) 2.3 % (0-6); HEMATOCRIT 41.3 % (37.9-51.0); HEMOGLOBIN 14.1 g/dL (13.5-17.0); LYMPHOCYTES % (AUTO) 21.9 % (13-45); MEAN CORPUSCULAR HEMOGLOBIN 30.9 pg (27.0-33.4); MEAN CORPUSCULAR HGB CONC 34.2 g/dL (32.0-36.0); MEAN CORPUSCULAR VOLUME 90 fl (80-97); MONOCYTES % (AUTO) 6.2 % (3-13); PLATELET COUNT 237 10^3/uL (150-450); RED BLOOD COUNT 4.57 10^6/uL (4.35-5.55); RED CELL DISTRIBUTION WIDTH 15.4 % (11.5-14.0); SEGMENTED NEUTROPHILS % (AUTO) 68.2 % (42-78); TOTAL CELLS COUNTED % (AUTO) 100 %; WHITE BLOOD COUNT 8.9 10^3/uL (4.0-10.5)
[2019-06-23 11:08] LABS: ALBUMIN 4.5 g/dL (3.5-5.0); ALKALINE PHOSPHATASE 114 U/L (38-126); ANION GAP 12 (5-19); ASPARTATE AMINO TRANSFERASE 31 U/L (17-59); BILIRUBIN,DIRECT 0.1 mg/dL (0.0-0.4); BILIRUBIN,TOTAL 0.5 mg/dL (0.2-1.3); BLOOD UREA NITROGEN 24 mg/dL (7-20); CALCIUM 10.2 mg/dL (8.4-10.2); CARBON DIOXIDE 31 mmol/L (22-30); CHLORIDE 98 mmol/L (98-107); GLUCOSE 99 mg/dL (75-110); POTASSIUM 4.4 mmol/L (3.6-5.0); TOTAL PROTEIN 8.9 g/dL (6.3-8.2)
[2019-06-23 11:23] LABS: ERYTHROCYTE SEDIMENTATION RATE 61 mm/hr (0-20)
--- NOTE | 2019-06-23 12:29 | RADIOLOGY REPORT (SQ) ---
EXAM DESCRIPTION: TIB FIB BILAT 2 VIEWS COMPLETED DATE/TIME: 06/23/2019 11:03 am REASON FOR STUDY: NON-PRESSURE ULCER OF MELINA FEET WITH FAT LAYER EXPOSED L97.522 NON-PRS CHRONIC ULC ER OTH PRT LEFT FOOT W FAT LAYER L97.512 NON-PRS CHRONIC ULCER OTH PRT RIGHT FOOT W FAT LAYER E11.6 21 TYPE 2 DIABETES MELLITUS WITH FOOT ULCER COMPARISON: 05/27/2019 NUMBER OF VIEWS: Two views. TECHNIQUE: Two radiographic images acquired of the right and left tibia and fibula to include the kn ee and ankle in at least one projection. LIMITATIONS: None. FINDINGS: MINERALIZATION: Normal. BONES: No acute fracture or dislocation. No worrisome bone lesions. SOFT TISSUES: Diffuse subcutaneous edema throughout both right and left lower extremities. No soft t issue gas. Artifact from support hose. OTHER: No other significant finding. IMPRESSION: Diffuse subcutaneous edema over the right and left lower leg. No fracture. No soft tis wisam gas. No radiopaque foreign body. No aggressive bony demineralization worrisome for osteomyeliti s TECHNICAL DOCUMENTATION: JOB ID: [id number] [employer]- All Rights Reserved Reading location - IP/workstation name: [email or web address]
--- NOTE | 2019-06-23 12:35 | RADIOLOGY REPORT (SQ) ---
EXAM DESCRIPTION: FOOT BILATERAL 3 VIEWS COMPLETED DATE/TIME: 06/23/2019 11:03 am REASON FOR STUDY: NON-PRESSURE ULCER OF MELINA FEET WITH FAT LAYER EXPOSED L97.522 NON-PRS CHRONIC ULC ER OTH PRT LEFT FOOT W FAT LAYER L97.512 NON-PRS CHRONIC ULCER OTH PRT RIGHT FOOT W FAT LAYER E11.6 21 TYPE 2 DIABETES MELLITUS WITH FOOT ULCER COMPARISON: Bilateral feet 05/27/2019, 01/14/2019, 09/29/2018 NUMBER OF VIEWS: Three views. TECHNIQUE: AP, lateral and oblique radiographic images acquired of the right and left foot. LIMITATIONS: None. FINDINGS: RIGHT MINERALIZATION: Normal. BONES: No acute fracture or dislocation. No worrisome bone lesions. JOINTS: No effusions. SOFT TISSUES: Plantar ulcer along the right great toe. There is diffuse soft tissue swelling of the right 1st 2nd toes and forefoot. OTHER: No other significant finding. LEFT MINERALIZATION: Normal. BONES: No acute fracture or dislocation. No worrisome bone lesions. JOINTS: Abnormal left 1st metatarsophalangeal joint with joint space narrowing and subcortical erosio ns, similar over the series of exams. SOFT TISSUES: No soft tissue swelling. No foreign body. OTHER: No other significant finding. IMPRESSION: Plantar ulcer right great toe gout bony demineralization Chronic joint space narrowing and CT head 1st metatarsophalangeal joint. Stable appearance over the series of plain films TECHNICAL DOCUMENTATION: JOB ID: [id number] [employer]- All Rights Reserved Reading location - IP/workstation name: [email or web address]
[2019-06-23 14:18] LABS: C-REACTIVE PROTEIN 14.8 mg/L (<10.0)
== END ==
LOC: WC 10:13
PROVIDERS: ATTEND Preventive Medicine Undersea and Hyperbaric Medicine
DX: E11.621 Type 2 diabetes mellitus with foot ulcer (principal); L97.522 Non-pressure chronic ulcer of other part of left foot with fat layer exposed; L97.512 Non-pressure chronic ulcer of other part of right foot with fat layer exposed
CPT/HCPCS: 36415; 80053; 83036; 85025; 85652; 86140

== ENCOUNTER → 2019-09-22 | Outpatient (CLI) | payer MEDICARE ==
--- NOTE | 2019-09-22 13:12 | RADIOLOGY REPORT (SQ) ---
EXAM DESCRIPTION: TIB FIB BILAT 2 VIEWS COMPLETED DATE/TIME: 09/22/2019 12:57 pm REASON FOR STUDY: NON PRESSURE ULCER MELINA FEET L97.512 NON-PRS CHRONIC ULCER OTH PRT RIGHT FOOT W FA T LAYER L97.522 NON-PRS CHRONIC ULCER OTH PRT LEFT FOOT W FAT LAYER E11.621 TYPE 2 DIABETES MELLIT US WITH FOOT ULCER COMPARISON: None. NUMBER OF VIEWS: Two views. TECHNIQUE: Two radiographic images acquired of the right and left tibia and fibula to include the kn ee and ankle in at least one projection. LIMITATIONS: None. FINDINGS: MINERALIZATION: Normal. BONES: No acute fracture or dislocation. No worrisome bone lesions. No significant osteophytes. SOFT TISSUES: No obvious swelling or foreign body. OTHER: Degenerative changes in the knee joint most marked in the medial compartment. IMPRESSION: Soft tissue edema bilaterally left greater than right. No conventional radiographic sean dence of osteomyelitis. TECHNICAL DOCUMENTATION: JOB ID: [id number] [employer]- All Rights Reserved Reading location - IP/workstation name: [email or web address]
--- NOTE | 2019-09-22 13:14 | RADIOLOGY REPORT (SQ) ---
EXAM DESCRIPTION: FOOT BILATERAL 3 VIEWS COMPLETED DATE/TIME: 09/22/2019 12:57 pm REASON FOR STUDY: NON PRESSURE ULCER MELINA FEET L97.512 NON-PRS CHRONIC ULCER OTH PRT RIGHT FOOT W FA T LAYER L97.522 NON-PRS CHRONIC ULCER OTH PRT LEFT FOOT W FAT LAYER E11.621 TYPE 2 DIABETES [facility] US WITH FOOT ULCER COMPARISON: 06/23/2019 NUMBER OF VIEWS: Three views. TECHNIQUE: AP, lateral and oblique without weight bearing radiographic images acquired of the right and left foot. LIMITATIONS: None. FINDINGS: MINERALIZATION: Normal. BONES: Postsurgical changes involving the left great toe. No conventional radiographic evidence of os teomyelitis. JOINTS: No erosions. No chris-articular osteopenia. No chondrocalcinosis. SOFT TISSUES: Diffuse soft tissue swelling over the metatarsal phalangeal joints and phalanges bilate rally. OTHER: No other significant finding. IMPRESSION: Stable changes in the left great toe. Soft tissue swelling over the distal feet bilater ally which is increased since prior study. No conventional radiographic evidence of osteomyelitis. TECHNICAL DOCUMENTATION: JOB ID: [id number] 2010 [employer]- All Rights Reserved Reading location - IP/workstation name: [email or web address]
[2019-09-22 13:20] LABS: ABSOLUTE BASOPHILS # (AUTO) 0.1 10^3/uL (0.0-0.2); ABSOLUTE EOSINOPHILS # (AUTO) 0.1 10^3/uL (0.0-0.6); ABSOLUTE LYMPHOCYTES (AUTO) 1.4 10^3/uL (0.5-4.7); ABSOLUTE MONOCYTES (AUTO) 0.5 10^3/uL (0.1-1.4); ABSOLUTE NEUT (AUTO) 5.2 10^3/uL (1.7-8.2); BASOPHILS % (AUTO) 0.7 % (0-2); HEMATOCRIT 38.9 % (37.9-51.0); HEMOGLOBIN 12.8 g/dL (13.5-17.0); LYMPHOCYTES % (AUTO) 18.7 % (13-45); MEAN CORPUSCULAR HEMOGLOBIN 29.5 pg (27.0-33.4); MEAN CORPUSCULAR HGB CONC 32.9 g/dL (32.0-36.0); MEAN CORPUSCULAR VOLUME 90 fl (80-97); PLATELET COUNT 259 10^3/uL (150-450); RED BLOOD COUNT 4.34 10^6/uL (4.35-5.55); RED CELL DISTRIBUTION WIDTH 17.3 % (11.5-14.0); SEGMENTED NEUTROPHILS % (AUTO) 71.6 % (42-78); TOTAL CELLS COUNTED % (AUTO) 100 %; WHITE BLOOD COUNT 7.3 10^3/uL (4.0-10.5)
[2019-09-22 13:47] LABS: ALBUMIN 4.1 g/dL (3.5-5.0); ALKALINE PHOSPHATASE 118 U/L (38-126); ANION GAP 9 (5-19); ASPARTATE AMINO TRANSFERASE 31 U/L (17-59); BILIRUBIN,TOTAL 0.5 mg/dL (0.2-1.3); BLOOD UREA NITROGEN 15 mg/dL (7-20); C-REACTIVE PROTEIN 25.5 mg/L (<10.0); CALCIUM 9.4 mg/dL (8.4-10.2); CARBON DIOXIDE 31 mmol/L (22-30); CHLORIDE 98 mmol/L (98-107); GLUCOSE 198 mg/dL (75-110); POTASSIUM 4.7 mmol/L (3.6-5.0); TOTAL PROTEIN 8.2 g/dL (6.3-8.2)
[2019-09-22 14:11] LABS: ERYTHROCYTE SEDIMENTATION RATE 62 mm/hr (0-20)
== END ==
LOC: WC 12:12
PROVIDERS: ATTEND Preventive Medicine Undersea and Hyperbaric Medicine
DX: L97.512 Non-pressure chronic ulcer of other part of right foot with fat layer exposed (principal); L97.522 Non-pressure chronic ulcer of other part of left foot with fat layer exposed; E11.621 Type 2 diabetes mellitus with foot ulcer
CPT/HCPCS: 36415; 80053; 85025; 85652; 86140

== ENCOUNTER → 2020-01-13 | Outpatient (CLI) | payer MEDICARE ==
[2020-01-13 11:07] LABS: ABSOLUTE BASOPHILS # (AUTO) 0.1 10^3/uL (0.0-0.2); ABSOLUTE EOSINOPHILS # (AUTO) 0.3 10^3/uL (0.0-0.6); ABSOLUTE LYMPHOCYTES (AUTO) 1.6 10^3/uL (0.5-4.7); ABSOLUTE MONOCYTES (AUTO) 0.5 10^3/uL (0.1-1.4); ABSOLUTE NEUT (AUTO) 5.6 10^3/uL (1.7-8.2); BASOPHILS % (AUTO) 0.7 % (0-2); EOSINOPHILS % (AUTO) 3.6 % (0-6); HEMATOCRIT 35.7 % (37.9-51.0); HEMOGLOBIN 11.7 g/dL (13.5-17.0); LYMPHOCYTES % (AUTO) 20.2 % (13-45); MEAN CORPUSCULAR HEMOGLOBIN 29.2 pg (27.0-33.4); MEAN CORPUSCULAR HGB CONC 32.9 g/dL (32.0-36.0); MEAN CORPUSCULAR VOLUME 89 fl (80-97); MONOCYTES % (AUTO) 6.5 % (3-13); PLATELET COUNT 248 10^3/uL (150-450); RED BLOOD COUNT 4.02 10^6/uL (4.35-5.55); RED CELL DISTRIBUTION WIDTH 16.8 % (11.5-14.0); TOTAL CELLS COUNTED % (AUTO) 100 %; WHITE BLOOD COUNT 8.1 10^3/uL (4.0-10.5)
[2020-01-13 11:38] LABS: ALBUMIN 4.2 g/dL (3.5-5.0); ALKALINE PHOSPHATASE 110 U/L (38-126); ANION GAP 7 (5-19); ASPARTATE AMINO TRANSFERASE 25 U/L (17-59); BILIRUBIN,DIRECT 0.1 mg/dL (0.0-0.4); BILIRUBIN,TOTAL 0.9 mg/dL (0.2-1.3); BLOOD UREA NITROGEN 20 mg/dL (7-20); C-REACTIVE PROTEIN 30.8 mg/L (<10.0); CALCIUM 9.8 mg/dL (8.4-10.2); CARBON DIOXIDE 31 mmol/L (22-30); CHLORIDE 102 mmol/L (98-107); GLUCOSE 181 mg/dL (75-110); POTASSIUM 4.5 mmol/L (3.6-5.0); TOTAL PROTEIN 8.3 g/dL (6.3-8.2)
[2020-01-13 12:02] LABS: ERYTHROCYTE SEDIMENTATION RATE 83 mm/hr (0-20)
== END ==
LOC: WC 10:01
PROVIDERS: ATTEND Preventive Medicine Undersea and Hyperbaric Medicine
DX: E11.621 Type 2 diabetes mellitus with foot ulcer (principal); L97.512 Non-pressure chronic ulcer of other part of right foot with fat layer exposed; L97.522 Non-pressure chronic ulcer of other part of left foot with fat layer exposed
CPT/HCPCS: 36415; 80053; 83036; 85025; 85652; 86140

== ENCOUNTER → 2020-04-26 | Outpatient (CLI) | payer MEDICARE ==
--- NOTE | 2020-04-26 12:18 | RADIOLOGY REPORT (SQ) ---
EXAM DESCRIPTION: FOOT LEFT COMPLETE IMAGES COMPLETED DATE/TIME: 04/26/2020 11:46 am REASON FOR STUDY: NON-PRS CHRONIC ULCER OTH PRT LEFT FOOT W FAT LAYER EXPOSED L97.512 NON-PRS CHRON IC ULCER OTH PRT RIGHT FOOT W FAT LAYER L97.522 NON-PRS CHRONIC ULCER OTH PRT LEFT FOOT W FAT LAYER COMPARISON: 03/08/2020 NUMBER OF VIEWS: Three views. TECHNIQUE: AP, lateral and oblique radiographic images acquired of the left foot. LIMITATIONS: None. FINDINGS: MINERALIZATION: Normal. BONES: Once again there are erosions at the 1st metatarsal-phalangeal joint. However, there appears to be some bone destruction in the head of the 1st metatarsal. JOINTS: See above SOFT TISSUES: No soft tissue swelling. No foreign body. OTHER: No other significant finding. IMPRESSION: Cannot exclude osteomyelitis in the head of the 1st metatarsal. TECHNICAL DOCUMENTATION: JOB ID: [id number] 2010 [employer]- All Rights Reserved Reading location - IP/workstation name: [email or web address]
--- NOTE | 2020-04-26 12:20 | RADIOLOGY REPORT (SQ) ---
EXAM DESCRIPTION: FOOT RIGHT COMPLETE IMAGES COMPLETED DATE/TIME: 04/26/2020 11:45 am REASON FOR STUDY: NON-PRS CHRONIC ULCER OTH PRT RIGHT FOOT W FAT LAYER EXPOSED L97.512 NON-PRS [employer] DANN ULCER OTH PRT RIGHT FOOT W FAT LAYER L97.522 NON-PRS CHRONIC ULCER OTH PRT LEFT FOOT W FAT LAYER COMPARISON: 03/08/2020 NUMBER OF VIEWS: Three views. TECHNIQUE: AP, lateral and oblique radiographic images acquired of the right foot. LIMITATIONS: None. FINDINGS: MINERALIZATION: Normal. BONES: There is increased bone destruction in the 1st distal phalanx. JOINTS: No effusions. SOFT TISSUES: No soft tissue swelling. No foreign body. OTHER: No other significant finding. IMPRESSION: Likely osteomyelitis in the 1st distal phalanx. TECHNICAL DOCUMENTATION: JOB ID: [id number] 2010 [employer]- All Rights Reserved Reading location - IP/workstation name: [email or web address]
== END ==
LOC: WC 11:15
PROVIDERS: ATTEND Preventive Medicine Undersea and Hyperbaric Medicine
DX: L97.512 Non-pressure chronic ulcer of other part of right foot with fat layer exposed (principal); L97.522 Non-pressure chronic ulcer of other part of left foot with fat layer exposed

== ENCOUNTER → 2020-06-14 | Outpatient (CLI) | payer MEDICARE ==
[2020-06-14 10:45] LABS: ABSOLUTE BASOPHILS # (AUTO) 0.1 10^3/uL (0.0-0.2); ABSOLUTE EOSINOPHILS # (AUTO) 0.3 10^3/uL (0.0-0.6); ABSOLUTE LYMPHOCYTES (AUTO) 1.3 10^3/uL (0.5-4.7); ABSOLUTE MONOCYTES (AUTO) 0.5 10^3/uL (0.1-1.4); ABSOLUTE NEUT (AUTO) 5.3 10^3/uL (1.7-8.2); BASOPHILS % (AUTO) 1.1 % (0-2); EOSINOPHILS % (AUTO) 3.4 % (0-6); HEMATOCRIT 32.6 % (37.9-51.0); HEMOGLOBIN 10.6 g/dL (13.5-17.0); LYMPHOCYTES % (AUTO) 16.9 % (13-45); MEAN CORPUSCULAR HEMOGLOBIN 28.4 pg (27.0-33.4); MEAN CORPUSCULAR HGB CONC 32.5 g/dL (32.0-36.0); MEAN CORPUSCULAR VOLUME 88 fl (80-97); MONOCYTES % (AUTO) 7.3 % (3-13); PLATELET COUNT 212 10^3/uL (150-450); RED BLOOD COUNT 3.73 10^6/uL (4.35-5.55); RED CELL DISTRIBUTION WIDTH 17.9 % (11.5-14.0); SEGMENTED NEUTROPHILS % (AUTO) 71.3 % (42-78); TOTAL CELLS COUNTED % (AUTO) 100 %; WHITE BLOOD COUNT 7.5 10^3/uL (4.0-10.5)
[2020-06-14 11:05] LABS: ALBUMIN 3.7 g/dL (3.5-5.0); ALKALINE PHOSPHATASE 114 U/L (38-126); ANION GAP 11 (5-19); ASPARTATE AMINO TRANSFERASE 27 U/L (17-59); BILIRUBIN,DIRECT 0.2 mg/dL (0.0-0.4); BILIRUBIN,TOTAL 0.7 mg/dL (0.2-1.3); BLOOD UREA NITROGEN 16 mg/dL (7-20); C-REACTIVE PROTEIN 31.3 mg/L (<10.0); CALCIUM 8.7 mg/dL (8.4-10.2); CARBON DIOXIDE 27 mmol/L (22-30); CHLORIDE 103 mmol/L (98-107); GLUCOSE 87 mg/dL (75-110); POTASSIUM 4.1 mmol/L (3.6-5.0); TOTAL PROTEIN 7.6 g/dL (6.3-8.2)
[2020-06-14 11:37] LABS: ERYTHROCYTE SEDIMENTATION RATE 60 mm/hr (0-20)
--- NOTE | 2020-06-14 13:04 | RADIOLOGY REPORT (SQ) ---
EXAM DESCRIPTION: FOOT LEFT COMPLETE IMAGES COMPLETED DATE/TIME: 06/14/2020 9:53 am REASON FOR STUDY: NON PRESSURE CHRONIC ULCER OF MELINA FOOT L97.522 NON-PRS CHRONIC ULCER OTH PRT LEFT FOOT W FAT LAYER L97.512 NON-PRS CHRONIC ULCER OTH PRT RIGHT FOOT W FAT LAYER E11.621 TYPE 2 DIAB ETES MELLITUS WITH FOOT ULCER COMPARISON: 03/23/2020 NUMBER OF VIEWS: Three views. TECHNIQUE: AP, lateral and oblique without weight bearing radiographic images acquired of the left f oot. LIMITATIONS: None. FINDINGS: MINERALIZATION: Stable. BONES: No interval change. No significant osteophytes. JOINTS: Loss the joint space at the 1st metatarsal phalangeal joint. SOFT TISSUES: No swelling. No calcifications. OTHER: No other significant finding. IMPRESSION: No interval change with lucency involving the distal 1st metatarsal and proximal phalanx of the 1st digit. TECHNICAL DOCUMENTATION: JOB ID: [id number] 2010 [employer]- All Rights Reserved Reading location - IP/workstation name: [email or web address]
--- NOTE | 2020-06-14 13:06 | RADIOLOGY REPORT (SQ) ---
EXAM DESCRIPTION: FOOT RIGHT COMPLETE IMAGES COMPLETED DATE/TIME: 06/14/2020 9:53 am REASON FOR STUDY: NON PRESSURE CHRONIC ULCER OF MELINA FOOT L97.522 NON-PRS CHRONIC ULCER OTH PRT LEFT FOOT W FAT LAYER L97.512 NON-PRS CHRONIC ULCER OTH PRT RIGHT FOOT W FAT LAYER E11.621 TYPE 2 DIAB ETES MELLITUS WITH FOOT ULCER COMPARISON: 20 NUMBER OF VIEWS: Three views. TECHNIQUE: AP, lateral and oblique without weight bearing radiographic images acquired of the right foot. LIMITATIONS: None. FINDINGS: MINERALIZATION: Normal. BONES: Irregularity of the distal phalanx of the great toe. The lucency previously described is less apparent on today's study. No significant osteophytes. JOINTS: Degenerative changes in the interphalangeal joint of the great toe. SOFT TISSUES: Persistent soft tissue swelling. OTHER: No other significant finding. IMPRESSION: Very little change from prior study with persistent soft tissue swelling surrounding the distal phalanx of the great toe. Lucency previously described is slightly less apparent on today's study. TECHNICAL DOCUMENTATION: JOB ID: [id number] 2010 [employer]- All Rights Reserved Reading location - IP/workstation name: [email or web address]
--- OUTSIDE RECORDS SUMMARY | 2020-06-15 18:21 | XMS REPORT ---
:1960 [facility] Address [facility] [address] [place] [id number] Care Team Providers Name Role Phone Suzanna Lala Primary Care Physician Unavailable Allergies, Adverse Reactions, Alerts Allergy Allergy Status Severity Reaction(s) Onset Inactive Treating C omments Name Type Date Date Clinician BANANA BANANA Active Review Dt: 2020-0308/01/2017 00:00:0 0 Banana Allergy to Active Hives substance Medications Ordered Filled Start Stop Current Ordering Indication Dosage Frequency Signature Comments Components Medication Medication Date Date Medication? Clinician (SIG) Name Name Hydrocodone 2016-08 Yes -Acetaminop hen 5-325 00:00: MG 00 Furosemide 2016-08 Yes 80 MG 00:00: 00 Levothyroxi 2016-08 Yes ne Sodium 25 MCG 00:00: 00 Terbinafine 2016-08 Yes HCl 250 MG 00:00: 00 Benazepril 2016-08 Yes HCl 10 MG 00:00: 00 BOOSTRIX 2016-08 Yes TDAP 2.5-8-5 00:00: Lf-mcg-Lf/0 00 .5mL Levothyroxi 2016-08 Yes ne Sodium 229 200 MCG 00:00: 00 Bactrim DS 2016-08 Yes 800-160 MG 00:00: 00 NovoLog 100 2016-08 Yes UNIT/ML 00:00: 00 Gabapentin 2016-08 Yes 300 MG 00:00: 00 Invokana 2016-08 Yes 300 MG 00:00: 00 Atorvastati 2016-08 Yes n Calcium 80 MG 00:00: 00 Sulfamethox 2016-08 Yes azole-Trime thoprim 00:00: 800-160 MG 00 Amoxicillin 2016-08 Yes -Pot Clavulanate 00:00: 875-125 MG 00 Potassium 2016-08 Yes Chloride Catie ER 20 00:00: MEQ 00 DILTIAZEM 2016-08 Yes 24HR ER 180 mg 00:00: 00 Oxycodone-A 2016-08 Yes cetaminophe n 10-325 MG 00:00: 00 Humalog 100 2016-08 Yes UNIT/ML 00:00: 00 Lantus 100 2016-08 Yes UNIT/ML 00:00: 00 insulin 2011-08 No 50U BID insulin glargine 09-01 glargine (U-100) 100 00:00: (U-100) unit/mL (3 00 100 mL) unit/mL (3 subcutaneou mL) s pen 50 subcutaneo units twice us pen 50 a day by units sub-q twice a route. day by sub-q route. aspirin 81 No 1 Q1D aspirin 81 mg mg tablet,eric tablet,del yed release ayed Take 1 release tablet Take 1 every day tablet by oral every day route. by oral route. atorvastati No atorvastat n 80 mg in 80 mg tablet TAKE tablet ONE TABLET TAKE ONE BY MOUTH TABLET BY EVERY DAY MOUTH EVERY DAY benazepril No benazepril 10 mg 10 mg tablet TAKE tablet ONE TABLET TAKE ONE BY MOUTH TABLET BY EVERY DAY MOUTH EVERY DAY cetirizine No 10mg cetirizine 10 mg 10 mg tablet 10 tablet 10 mg by oral mg by oral route. route. diltiazem No diltiazem CD 180 mg CD 180 mg capsule,ext capsule,ex ended tended release 24 release 24 hr TAKE 1 hr TAKE 1 CAPSULE BY CAPSULE BY MOUTH EVERY MOUTH DAY EVERY DAY furosemide No furosemide 80 mg 80 mg tablet TAKE tablet ONE TABLET TAKE ONE EVERY DAY TABLET EVERY DAY gabapentin No gabapentin 300 mg 300 mg capsule capsule TAKE 1 TAKE 1 CAPSULE BY CAPSULE BY MOUTH THREE MOUTH TIMES DAILY THREE TIMES DAILY Lantus No Lantus U-100 U-100 Insulin 100 Insulin unit/mL 100 subcutaneou unit/mL s solution subcutaneo INJECT 55 us UNITS solution SUBCUTANEOU INJECT 55 SLY TWICE UNITS DAILY SUBCUTANEO USLY TWICE DAILY levothyroxi No levothyrox ne 125 mcg ine 125 tablet TAKE mcg tablet 2 TABLETS TAKE 2 BY MOUTH TABLETS BY EVERY DAY MOUTH replaces EVERY DAY 200mcg AND replaces 25mcg 200mcg AND doses 25mcg doses metoprolol No metoprolol succinate succinate ER 25 mg ER 25 mg tablet,exte tablet,ext nded ended release 24 release 24 hr TAKE ONE hr TAKE TABLET BY ONE TABLET MOUTH TWICE BY MOUTH DAILY TWICE DAILY Novolog No Novolog U-100 U-100 Insulin Insulin aspart 100 aspart 100 unit/mL unit/mL subcutaneou subcutaneo s solution us Inject 60 solution unit(s) Inject 60 every day unit(s) by every day subcutaneou by s route. subcutaneo us route. oxycodone-a No oxycodone- cetaminophe acetaminop n 10 mg-325 hen 10 mg tablet mg-325 mg TAKE ONE tablet TABLET BY TAKE ONE MOUTH EVERY TABLET BY 6 HOURS MOUTH NEEDED EVERY 6 HOURS NEEDED potassium No potassium chloride ER chloride 20 mEq ER 20 mEq tablet,exte tablet,ext nded ended release(par release(pa t/cryst) rt/cryst) TAKE ONE TAKE ONE TABLET BY TABLET BY MOUTH EVERY MOUTH DAY EVERY DAY Keflex 500 No 1capsul TID Keflex 500 mg capsule e(s) mg capsule Take 1 Take 1 capsule 3 capsule 3 times a day times a by oral day by route. oral route. Xarelto 20 No 1 Q1D Xarelto 20 mg tablet mg tablet Take 1 Take 1 tablet tablet every day every day by oral by oral route. route. Problems Condition Condition Condition Status Onset Resolution Last Treatin g Comments Name Details Category Date Date Treatment Clinician Date [id number] Non-pressur Problem Active e chronic 03-29 ulcer of 00:00: unspecified 00 ankle with unspecified severity [id number] Type 2 Problem Active diabetes 03-29 mellitus 00:00: with other 00 skin ulcer Skin ulcer Non-pressur Problem Active of calf e chronic 03-10 ulcer of 00:00: right calf 00 with unspecified severity Chronic Non-pressur Problem Active ulcer of e chronic 03-10 calf ulcer of 00:00: left calf 00 with other specified severity Non-pressur Non-pressur Problem Active e chronic e chronic 03-10 ulcer of ulcer of 00:00: other part other part 00 of right of right foot with foot with unspecified unspecified severity severity Peripheral Peripheral Problem Active circulatory Circulatory 6-15 disorder Disorder 00:00: associated Associated 00 with type 2 with Type 2 diabetes Diabetes mellitus Mellitus Venous Venous Problem Active stasis Stasis 6-15 ulcer of Ulcer of 00:00: leg Leg 00 Juvenile Juvenile Problem Active rheumatoid Rheumatoid 6-15 arthritis Arthritis 00:00: 00 Patient Patient Problem Active encounter Encounter 3-20 status Status 00:00: 00 Severe Severe Problem Active obesity Obesity 1-10 00:00: 00 Ventricular Ventricular Problem Active 2017-08 premature Premature 1-15 beats Beats 00:00: 00 Atrial Atrial Problem Active 2017-08 fibrillatio Fibrillatio 0-01 n n 00:00: 00 Paroxysmal Paroxysmal Problem Active atrial Atrial 8-20 fibrillatio Fibrillatio 00:00: n n 00 Atrial Atrial Problem Active flutter Flutter 8-20 00:00: 00 Stasis Stasis Problem Active 2011-08 ulcer Ulcer 24 00:00: 00 Cellulitis Cellulitis Problem Active 2011-0824 00:00: 00 Polyneuropa Polyneuropa Problem Active thy thy associated Associated with type 2 with Type 2 diabetes Diabetes mellitus Mellitus Neurologica Neurologica Problem Active l disorder l Disorder with type 2 with Type 2 diabetes Diabetes mellitus Mellitus Diabetic Diabetic Problem Active foot ulcer Foot Ulcer Cellulitis Cellulitis Problem Active in diabetic in Diabetic foot Foot Testicular Testicular Problem Active hypofunctio Hypofunctio n n Mixed Mixed Problem Active hyperlipide Hyperlipide shila shila Hyperlipide Hyperlipide Problem Active shila shila Anemia Anemia Problem Active Obstructive Obstructive Problem Active sleep apnea Sleep Apnea syndrome Syndrome Essential Essential Problem Active hypertensio Hypertensio n n Benign Benign Problem Active essential Essential hypertensio Hypertensio n n Congestive Congestive Problem Active heart Heart failure Failure Localized Localized Problem Active infection Infection of skin of Skin AND/OR AND/OR subcutaneou Subcutaneou s tissue s Tissue Ulcer of Ulcer of Problem Active lower Lower extremity Extremity Sleep apnea Sleep Apnea Problem Active Malaise and Malaise and Problem Active fatigue Fatigue Edema Edema Problem Active Disorder of Disorder of Problem Active lower Lower extremity Extremity Tinea pedis Tinea Pedis Problem Active Acquired Acquired Problem Active hypothyroid Hypothyroid ism ism Hypothyroid Hypothyroid Problem Active ism ism Disorder of Disorder of Problem Active thyroid Thyroid gland Gland Diabetes Diabetes Problem Active mellitus Mellitus Procedures Procedure Date / Time Performed Performing Clinician Isidoro Cook 2008-08-04 00:00:00 Results This patient has no known results. Assessments Condition Name Status Diagnosis Date Treating Clinici an - Non-pressure chronic ulcer of Active JONNY LEAL unspecified ankle with unspecified severity L97.309 - Type 2 diabetes mellitus with other Active JONNY LEAL skin ulcer E11.622 - Non-pressure chronic ulcer of right Active GERRY, SHASTA calf with unspecified severity L97.219 - Non-pressure chronic ulcer of other Active GERRY, SHASTA part of right foot with unspecified severity L97.519 - Non-pressure chronic ulcer of left Active GERRY, SHASTA calf with other specified severity L97.228 Abnormal urine Active 2020-03-03 09:03:36 Diabetes mellitus Active 2020-03-03 08:17:59 Diabetic foot ulcer Active 2020-03-03 08:18:18 Cellulitis of lower limb Active 2020-01-17 09:07:32 Neurological disorder with type 2 Active 2020-01-17 09: 08:11 diabetes mellitus Juvenile rheumatoid arthritis Active 2020-01-17 09:08:3 1 Venous stasis ulcer of leg Active 2020-01-17 10:19:24 Peripheral circulatory disorder Active 2020-01-17 10:19 :49 associated with type 2 diabetes mellitus Adult health examination Active 2020-01-17 17:50:17 Essential hypertension Active 2019-12-06 15:31:16 Hypothyroidism Active 2019-12-06 15:31:18 Mixed hyperlipidemia Active 2019-12-06 15:31:20 Severe obesity Active 2019-12-06 15:31:24 Polyneuropathy due to type 2 diabetes Active 2019-12-06 16:37:33 mellitus - Varicose veins of unsp lower Active JONNY TABOR extremity w ulcer of unsp site I83.009 - Type 2 diabetes mellitus with other Active JONNY LEAL skin ulcer E11.622 - Cellulitis, unspecified L03.90 Active JONNY LEAL - Varicose veins of bi low extrem w Active JONNY LEAL ot complications I83.893 - Varicose veins of bi low extrem w Active [facility] I83.893 - Varicose veins of unsp lower Active E SKEW, SHASTA extremity w ulcer of unsp site I83.009 - Phlbts and thombophlb of superfic Active Migration, Provider vessels of low extrm, bi I80.03 - Varicose veins of bi low extrem w Active GERRY, SHASTA oth complications I83.893 - Varicose veins of right lower Active Migration, Provider extremity with inflammation I83.11 - Varicose veins of left lower Active M igration, Provider extremity with inflammation I83.12 - Varicose veins of bilateral lower Active Migration, Provider extremities with pain I83.813 - Varicose veins of unsp lower Active M igration, Provider extremity w ulcer of unsp site I83.009 - Type 2 diabetes mellitus with Active GERRY, SHASTA diabetic neuropathy, unsp E11.40 - Varicose veins of unsp lower Active E SKEW, SHASTA extremity w ulcer of unsp site I83.009 Encounters Start End Encounter Admission Attending Care Care Encounter Date/Time Date/Time Type Type Clinicians Facility Department ID 2020-03-29 2020-03-29 [facility] [id number] 00:[facility] 2020-03-10 2020-03-10 [facility] [id number] 00:00:00 00:00:00 [facility] [place] 2020-03-03 2020-03-03 [facility] 00:00:00 00:00:00 [facility] [address], Medicine Medicine MD: Little [address] [address], Ph. 2020-01-17 2020-01-17 [facility] 00:00:00 00:00:00 [facility] [address], Medicine Medicine MD: Joyce0 [address] [address], Ph. 2019-12-06 2019-12-06 [facility] 00:00:00 00:00:00 [facility] [address], Medicine Medicine MD: Joyce0 [facility] [address] , [place] [address], Ph. 2019-05-30 2019-05-30 [facility] [id number] 00:00:00 00:00:00 [facility] 2019-05-29 2019-05-29 [facility] [id number] 00:00:00 00:00:00 [facility] 2017-08-01 2017-08-01 [facility] [id number] 00:00:00 00:00:00 [facility] PA 2017-07-14 2017-07-14 [facility] [id number] 00:00:00 00:00:00 [facility] PA 2017-07-07 2017-07-07 [facility] [id number] 00:00:00 00:00:00 [facility] PA 2017-05-26 2017-05-26 [facility] [id number] 00:00:00 00:00:00 [facility] 2017-05-13 2017-05-13 [facility] [id number] 00:00:00 00:00:00 [facility] PA 2017-05-13 2017-05-13 [facility] [id number] 00:00:00 00:00:00 [facility] PA 2017-05-13 2017-05-13 [facility] [id number] 00:00:00 00:00:00 [facility] PA 2017-05-06 2017-05-06 [facility] [id number] 00:00:00 00:00:00 [facility] PA 2017-05-06 2017-05-06 [facility] [id number] 00:00:00 00:00:00 [facility] PA 2017-05-06 2017-05-06 [facility] [id number] 00:00:00 00:00:00 [facility] PA 2017-02-28 2017-02-28 [facility] [id number] 00:00:00 00:00:00 [facility] PA 2017-02-28 2017-02-28 [facility] [id number] 00:00:00 00:00:00 [facility] 2017-02-28 2017-02-28 [facility] [id number] 00:00:00 00:00:00 [facility] [place] 2017-02-17 2017-02-17 [facility] [id number] 00:00:00 00:00:00 [facility] [place] 2017-02-17 2017-02-17 [facility] [id number] 00:00:00 00:00:00 [facility] [place] Immunizations Ordered Immunization Filled Immunization Date Status Commen ts Refusal Reason Name Name influenza, seasonal, 2012-04-28 Completed injectable, :: preservative free Social History Smoking Status Start Date Stop Date Former Smoker Vital Signs Vital Name Observation Time Observation Value Comments temperature 2020-03-29 13:15:00 97 [degF] heart rate 2020-03-29 13:15:00 84 /min weight 2020-03-29 13:15:00 415 [lb_av] bmi 2020-03-29 13:15:00 46.75 kg/m2 height 2020-03-29 13:15:00 79 [in_us] respiratory rate 2020-03-29 13:15:00 14 /min blood pressure systolic 2020-03-29 13:15:00 129 mm[Hg] blood pressure diastolic 2020-03-29 13:15:00 84 mm[Hg] BP Diastolic 2020-03-03 00:00:00 70 mm[Hg] Height 2020-03-03 00:00:00 77.5 [in_i] BMI (Body Mass Index) 2020-03-03 00:00:00 52.2 kg/m2 BP Systolic 2020-03-03 00:00:00 140 mm[Hg] Body Weight 2020-03-03 00:00:00 446 [lb_av] BP Diastolic 2020-01-17 00:00:00 80 mm[Hg] Height 2020-01-17 00:00:00 77.5 [in_i] BMI (Body Mass Index) 2020-01-17 00:00:00 51.9 kg/m2 BP Systolic 2020-01-17 00:00:00 124 mm[Hg] Body Weight 2020-01-17 00:00:00 443 [lb_av] BP Diastolic 2019-12-06 00:00:00 78 mm[Hg] Height 2019-12-06 00:00:00 77.5 [in_i] BMI (Body Mass Index) 2019-12-06 00:00:00 50.6 kg/m2 BP Systolic 2019-12-06 00:00:00 148 mm[Hg] Body Weight 2019-12-06 00:00:00 432 [lb_av] Hospital Discharge Instructions 1. Diabetes mellitus HbA1c (hemoglobin A1c), blood CMP, serum or plasma microalbumin/creatinine, mass ratio, urine 2. Diabetic foot ulcer oxycodone-acetaminophen 10 mg-325 mg tablet 3. Abnormal urine urinalysis, dipstick Discussion Note: None recorded. Patient educational handouts:No information available.1. Cellulitis of lower limb CBC w/ auto diff Keflex 500 mg capsule 2. Neurological disorder with type 2 diabetes mellitus oxycodone-acetaminophen 10 mg-325 mg tablet 3. Juvenile rheumatoid arthritis 4. Venous stasis ulcer of leg 5. Peripheral circulatory disorder associated with type 2 diabetes mellitus 6. Adult health examination Discussion Note: None recorded. Patient educational handouts: No information available.1. Essential hypertension high blood pressure: care instructions learning about high blood pressure CMP, serum or plasma CBC w/ auto diff 2. Hypothyroidism hypothyroidism: care instructions thyroid panel, serum 3. Mixed hyperlipidemia lipid panel, serum 4. Severe obesity 5.Polyneuropathy due to type 2 diabetes mellitus oxycodone-acetaminophen 10 mg-325 mg tablet Hb A1c (hemoglobin A1c), blood Discussion Note: None recorded.
== END ==
LOC: WC 09:18
PROVIDERS: ATTEND Preventive Medicine Undersea and Hyperbaric Medicine
DX: E11.621 Type 2 diabetes mellitus with foot ulcer (principal); L97.522 Non-pressure chronic ulcer of other part of left foot with fat layer exposed; L97.512 Non-pressure chronic ulcer of other part of right foot with fat layer exposed
CPT/HCPCS: 36415; 80053; 83036; 85025; 85652; 86140

== ENCOUNTER → 2020-08-10 | Outpatient (CLI) | payer MEDICARE ==
[2020-08-10 12:29] LABS: ABSOLUTE BASOPHILS # (AUTO) 0.1 10^3/uL (0.0-0.2); ABSOLUTE EOSINOPHILS # (AUTO) 0.2 10^3/uL (0.0-0.6); ABSOLUTE LYMPHOCYTES (AUTO) 1.5 10^3/uL (0.5-4.7); ABSOLUTE MONOCYTES (AUTO) 0.5 10^3/uL (0.1-1.4); ABSOLUTE NEUT (AUTO) 5.5 10^3/uL (1.7-8.2); BASOPHILS % (AUTO) 0.8 % (0-2); HEMATOCRIT 33.8 % (37.9-51.0); LYMPHOCYTES % (AUTO) 19.5 % (13-45); MEAN CORPUSCULAR HEMOGLOBIN 28.1 pg (27.0-33.4); MEAN CORPUSCULAR HGB CONC 32.7 g/dL (32.0-36.0); MEAN CORPUSCULAR VOLUME 86 fl (80-97); MONOCYTES % (AUTO) 6.5 % (3-13); PLATELET COUNT 212 10^3/uL (150-450); RED BLOOD COUNT 3.93 10^6/uL (4.35-5.55); RED CELL DISTRIBUTION WIDTH 18.3 % (11.5-14.0); SEGMENTED NEUTROPHILS % (AUTO) 70.2 % (42-78); TOTAL CELLS COUNTED % (AUTO) 100 %; WHITE BLOOD COUNT 7.8 10^3/uL (4.0-10.5)
[2020-08-10 12:53] LABS: ALBUMIN 3.9 g/dL (3.5-5.0); ALKALINE PHOSPHATASE 130 U/L (38-126); ANION GAP 10 (5-19); ASPARTATE AMINO TRANSFERASE 24 U/L (17-59); BILIRUBIN,DIRECT 0.3 mg/dL (0.0-0.4); BILIRUBIN,TOTAL 0.6 mg/dL (0.2-1.3); BLOOD UREA NITROGEN 19 mg/dL (7-20); C-REACTIVE PROTEIN 21.3 mg/L (<10.0); CALCIUM 9.6 mg/dL (8.4-10.2); CARBON DIOXIDE 29 mmol/L (22-30); CHLORIDE 101 mmol/L (98-107); GLUCOSE 134 mg/dL (75-110); POTASSIUM 4.3 mmol/L (3.6-5.0); TOTAL PROTEIN 8.3 g/dL (6.3-8.2)
[2020-08-10 13:10] LABS: ERYTHROCYTE SEDIMENTATION RATE 79 mm/hr (0-20)
== END ==
LOC: WC 10:30
PROVIDERS: ATTEND Preventive Medicine Undersea and Hyperbaric Medicine
DX: E11.621 Type 2 diabetes mellitus with foot ulcer (principal); L97.222 Non-pressure chronic ulcer of left calf with fat layer exposed
CPT/HCPCS: 36415; 80053; 85025; 85652; 86140

== ENCOUNTER → 2020-08-31 | Outpatient (CLI) | payer MEDICARE ==
[2020-08-31 10:32] LABS: ABSOLUTE BASOPHILS # (AUTO) 0.1 10^3/uL (0.0-0.2); ABSOLUTE EOSINOPHILS # (AUTO) 0.2 10^3/uL (0.0-0.6); ABSOLUTE LYMPHOCYTES (AUTO) 1.1 10^3/uL (0.5-4.7); ABSOLUTE MONOCYTES (AUTO) 0.7 10^3/uL (0.1-1.4); ABSOLUTE NEUT (AUTO) 5.9 10^3/uL (1.7-8.2); BASOPHILS % (AUTO) 0.8 % (0-2); EOSINOPHILS % (AUTO) 2.8 % (0-6); HEMATOCRIT 29.9 % (37.9-51.0); HEMOGLOBIN 9.6 g/dL (13.5-17.0); LYMPHOCYTES % (AUTO) 13.6 % (13-45); MEAN CORPUSCULAR HEMOGLOBIN 27.5 pg (27.0-33.4); MEAN CORPUSCULAR HGB CONC 32.1 g/dL (32.0-36.0); MEAN CORPUSCULAR VOLUME 86 fl (80-97); MONOCYTES % (AUTO) 8.3 % (3-13); PLATELET COUNT 248 10^3/uL (150-450); RED BLOOD COUNT 3.49 10^6/uL (4.35-5.55); RED CELL DISTRIBUTION WIDTH 17.7 % (11.5-14.0); SEGMENTED NEUTROPHILS % (AUTO) 74.5 % (42-78); TOTAL CELLS COUNTED % (AUTO) 100 %; WHITE BLOOD COUNT 7.9 10^3/uL (4.0-10.5)
[2020-08-31 11:02] LABS: ALBUMIN 3.4 g/dL (3.5-5.0); ALKALINE PHOSPHATASE 185 U/L (38-126); ANION GAP 9 (5-19); ASPARTATE AMINO TRANSFERASE 42 U/L (17-59); BILIRUBIN,DIRECT 0.3 mg/dL (0.0-0.4); BILIRUBIN,TOTAL 0.6 mg/dL (0.2-1.3); BLOOD UREA NITROGEN 19 mg/dL (7-20); CALCIUM 9.2 mg/dL (8.4-10.2); CARBON DIOXIDE 26 mmol/L (22-30); CHLORIDE 99 mmol/L (98-107); GLUCOSE 168 mg/dL (75-110); POTASSIUM 4.9 mmol/L (3.6-5.0); TOTAL PROTEIN 7.5 g/dL (6.3-8.2)
[2020-08-31 11:15] LABS: ERYTHROCYTE SEDIMENTATION RATE 109 mm/hr (0-20)
[2020-08-31 11:17] LABS: C-REACTIVE PROTEIN 158.9 mg/L (<10.0)
--- NOTE | 2020-08-31 12:16 | RADIOLOGY REPORT (SQ) ---
EXAM DESCRIPTION: FOOT BILATERAL 3 VIEWS IMAGES COMPLETED DATE/TIME: 08/31/2020 11:34 am REASON FOR STUDY: (L97.512) (L97.522) NON PRESSURE CHRONIC ULCERS OF LEFT AND RIGHT FOOT L97.512 NO N-PRS CHRONIC ULCER OTH PRT RIGHT FOOT W FAT LAYER L97.522 NON-PRS CHRONIC ULCER OTH PRT LEFT FOOT W FAT LAYER E11.621 TYPE 2 DIABETES MELLITUS WITH FOOT ULCER COMPARISON: 07/06/2020 and 06/14/2020 NUMBER OF VIEWS: Six views. TECHNIQUE: AP, lateral and oblique radiographic images acquired of the right and left foot. LIMITATIONS: None. FINDINGS: MINERALIZATION: Osteopenia. BONES: Re- demonstration of erosive arthropathy of the left 1st metatarsal phalangeal joint and right great toe interphalangeal joint noting the appearance of mildly increased erosion of the left 1st me tatarsal head. No acute fracture or dislocation. JOINTS: Erosive arthropathy as above. SOFT TISSUES: Circumferential soft tissue edema seen bilaterally. No retained radiopaque foreign bod y. OTHER: No other significant finding. IMPRESSION: Erosive arthropathy bilaterally as detailed above. This appears to be mildly progressed in the study interval; cannot exclude superimposed osteomyelitis. TECHNICAL DOCUMENTATION: JOB ID: [id number] 2010 [email or web address]- All Rights Reserved Reading location - IP/workstation name: [email or web address]
== END ==
LOC: WC 09:49
PROVIDERS: ATTEND Preventive Medicine Undersea and Hyperbaric Medicine
DX: E11.621 Type 2 diabetes mellitus with foot ulcer (principal); L97.512 Non-pressure chronic ulcer of other part of right foot with fat layer exposed; L97.522 Non-pressure chronic ulcer of other part of left foot with fat layer exposed
CPT/HCPCS: 36415; 80053; 83036; 85025; 85652; 86140